=== PATIENT | male | born 1935 | race Caucasian/White ===

== ENCOUNTER 2017-11-11 21:30 | Inpatient (IN) | payer MEDICARE ==
[2017-11-11 22:17] LABS: #Eosinphils 0.1 thou/uL (0.0-0.7); #Lymphocytes 0.9 thou/uL (1.20-3.40); #Monocytes 0.6 thou/uL (0.11-0.59); #Neutrophils 7.3 thou/uL (1.40-6.50); %Basophils 0.2 % (0.0-1.0); %Eosinophils 0.6 % (0.0-10.0); %Lymphocytes 10.1 % (21.0-51.0); %Monocytes 7.1 % (0.0-10.0); %Neutrophils 81.9 % (42.0-75.0); Hemoglobin 12.3 g/dL (14.0-18.0); Mean Corpuscular HGB CONC 34.3 g/dL (32.0-36.0); Mean Corpuscular Volume 90.4 fl (80.0-94.0); Mean Platelet Volume 8.4 fL (7.4-10.4); Platelet Count 159 thou/uL (130-400); RBC Distribution Width 12.3 % (11.5-14.5); Red Blood Cell (RBC) Count 3.98 mill/uL (4.70-6.10)
[2017-11-11 22:36] LABS: ALT (SGPT) 14 U/L (8-55); AST (SGOT) 15 U/L (5-34); Albumin 4.3 g/dL (3.4-4.8); Alkaline Phosphatase 68 U/L (40-150); Anion Gap 16 mmol/L (10-20); BUN (Urea Nitrogen) 51 mg/dL (8.4-25.7); Bilirubin, Total 0.8 mg/dL (0.2-1.2); Calc. Creatinine Clearance 0 mL/min (70-130); Carbon Dioxide 22 mmol/L (23-31); Chloride 102 mmol/L (98-107); Estimated GFR-MDRD 8; Globulin 3.2 g/dL (2.4-3.5); Glucose 211 mg/dL (83-110); Potassium 4.4 mmol/L (3.5-5.1); Protein, Total 7.5 g/dL (5.8-8.1); Sodium 136 mmol/L (136-145)
--- NOTE | 2017-11-11 22:42 | CT ---
CT OF THE BRAIN WITHOUT CONTRAST: 11/11/17 COMPARISON: None. HISTORY: Slurred speech. This started at 1:30 a.m. TECHNIQUE: Multiple contiguous axial images were obtained in a CT of the brain without contrast. FINDINGS: There are scattered hypodensities in the subcortical and periventricular white matter likely secondar y to small vessel ischemic disease. Intracranial vascular calcifications are seen. There is no eviden ce of hydrocephalus, intracranial hemorrhage, or extra-axial fluid collection. The calvarium and overlying soft tissues are unremarkable. The visualized paranasal sinuses and masto id air cells are well aerated. IMPRESSION: 1. No evidence of acute intracranial abnormality. 2. Small vessel ischemic disease. Dr. Merino notified of the findings at 10:25 p.m. on 11/11/17. POS: [facility]
[2017-11-11] MEDS ORDERED: Ondansetron HCl/PF 4 MG/2 ML Vial ONE (22:48)
--- NOTE | 2017-11-11 23:18 | CT ---
CTA OF THE NECK WITH CONTRAST CTA OF THE HEAD WITH CONTRAST CT PERFUSION 11/01/17 TECHNIQUE: 1. Multiple contiguous axial images were obtained in a CTA of the neck with contrast. Sagittal a nd coronal 3D MIP reformats were performed. 2. Multiple contiguous axial images were obtained in a CTA of the head with contrast. Sagittal a nd coronal 3D MIP reformats were performed. 3. Cerebral perfusion exam was performed. FINDINGS: CTA NECK: Mild diffuse atherosclerotic disease is seen in the bilateral subclavian arteries and in the aorta. T here is minimal atherosclerotic disease in the common carotid arteries. Surrounding both carotid bifurcations, There is significant calcified atherosclerotic plaque. Estimat ed stenosis of the proximal right internal carotid is approximately 60 to 70% per NASCET criteria. Th is occurs over a length of approximately 1 cm. Estimated stenosis of the left internal carotid artery per NASCET criteria is approximately 50% and occurs over a length of less than 1 cm. The distal cerv ical and internal carotid arteries show no significant atherosclerotic disease. The external carotid arteries are patent. No cervical adenopathy is seen. The visualized lung apices show a small right pleural effusion and at electasis. Degenerative changes are seen in the cervical spine. CTA HEAD: The bilateral intracranial internal carotid arteries show no significant atherosclerotic disease. The re is moderate diffuse atherosclerotic disease within the cavernous portion of both internal carotid arteries. The intracranial internal carotid arteries branch in a normal appearing anterior and middle cerebral arteries. There is no evidence of aneurysmal dilatation, focal stenosis, or occlusion in th e anterior circulation. Both vertebral arteries form a normal appearing basilar artery. Mild calcifications is seen in the bi lateral intracranial vertebral arteries. The posterior cerebral artery and cerebellar arteries are pa tent. There is no evidence of focal stenosis, occlusion or aneurysmal dilatation in the posterior cir culation. CT PERFUSION: Cerebral blood volume, blood flow and mean transit time are symmetric bilaterally without significant asymmetry. IMPRESSION: 1. Bilateral internal carotid artery stenosis proximally, right greater than left. 2. No evidence of intracranial vascular abnormality or occlusion. 3. Normal CT perfusion. Dr. Merino notified of the findings at 10:48 p.m. on 11/11/17. POS: [facility]
--- NOTE | 2017-11-11 23:27 | RAD ---
SINGLE VIEW OF THE CHEST: 11/11/17 COMPARISON: 07/31/16 HISTORY: Altered mental status. Patient started Valacyclovir yesterday and that is when the altered mental sta tus and confusion began. FINDINGS: Single view of the chest shows a cardiomediastinal silhouette which is upper limits of normal in siz e. The patient is status post sternotomy. Increased interstitial markings are present. There is no ev idence of consolidation, mass or pleural effusion. IMPRESSION: Stable chronic interstitial lung disease. POS: [facility]
[2017-11-12] MEDS ORDERED: methylPREDNISolone Sod Succ/PF 125 MG/2 ML VIAL ONE (00:44)
[2017-11-12] MEDS ORDERED: Water For Inject, Bacteriostat 30 ML ONE (00:44)
[2017-11-12] MEDS ORDERED: Ondansetron HCl/PF 4 MG/2 ML Vial IVP PRN ×2 (01:45→03:10)
[2017-11-12] MEDS ORDERED: Ondansetron ODT 4 MG TAB SL PRN (01:45)
[2017-11-12] MEDS ORDERED: Acetaminophen 325 MG TAB PO PRN ×2 (01:45→03:10)
[2017-11-12 02:09] VITALS: BMI 26.6
[2017-11-12] MEDS ORDERED: Sodium Chloride 0.65% Nasal 44 ML BOT EA NARE PRN (03:10)
[2017-11-12] MEDS ORDERED: Diabetic Tussin 200 MG/10 ML UDCUP PO PRN (03:10)
[2017-11-12] MEDS ORDERED: Dextrose 5% in Water 1,000 ML IV PRN (03:10)
[2017-11-12] MEDS ORDERED: Loratadine 10 MG TAB PO PRN (03:10)
[2017-11-12] MEDS ORDERED: Dextrose 50% Abboject 50 ML SYRINGE SLOW IVP PRN (03:10)
[2017-11-12] MEDS ORDERED: Loperamide HCl 2 MG CAP PO PRN (03:10)
[2017-11-12] MEDS ORDERED: Mag-Al 1200 mg/1200 mg/30 ML UDCUP PO PRN (03:10)
[2017-11-12] MEDS ORDERED: Milk Of Magnesia 30 ML UDCUP PO PRN (03:10)
[2017-11-12] MEDS ORDERED: Ondansetron ODT 4 MG TAB PO PRN (03:10)
[2017-11-12] MEDS ORDERED: Senokot 8.6 MG TAB PO PRN (03:10)
[2017-11-12] MEDS ORDERED: HYDROcodone/Acetaminophen 5/325 mg Tablet PO PRN (03:10)
[2017-11-12] MEDS ORDERED: Artificial Tears 18 DROP/0.9 ML EA EYE PRN (03:10)
[2017-11-12] MEDS ORDERED: Eucerin (Mineral Oil/Petrolatum,White) 30 gm Jar TOP PRN (03:10)
[2017-11-12] MEDS ORDERED: hydrALAZINE 20 MG/ML VIAL SLOW IVP PRN (03:10)
[2017-11-12] MEDS ORDERED: Zolpidem Tartrate 5 MG TAB PO PRN (03:10)
[2017-11-12] MEDS ORDERED: Chloraseptic Spray 180 ml Bottle PO PRN (03:10)
--- NOTE | 2017-11-12 04:56 | HP ---
PRIMARY CARE PHYSICIAN: [facility] call admission. PRIMARY TOWEL ROLLING MACHINE OPERATOR: Dr. Travis Bains. REASON FOR ADMISSION: Altered mental status. HISTORY OF PRESENT ILLNESS: This is an 81-year-old male who has underlying history of end-stage renal disease on hemodialysis Friday, Friday, Friday as well as mechanical prosthetic aortic valve on chronic anticoagulation therapy as well as a history of diabetes mellitus, who was brought to emergency room for altered mental status. Per family member, patient was confused. He was having headache. He was also had recently shingles and he was started on acyclovir. The patient was becoming more and more confused and that is why, patient was instructed to go to the emergency room for evaluation. Initially, stroke alert was done and in the emergency room, CT angiography with brain perfusion study was done, which was negative for any stroke. This patient's shingle is already on healing phase. He did not have any fever or chills, but only was worried about his confusion. In the emergency room, patient was able to answer most of the questions correctly, but somewhat answer he was not able to do right. 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-type. End-stage renal disease on hemodialysis Friday, Friday, Friday, hypertension, dyslipidemia, diabetes type 2. PAST SURGICAL HISTORY: CABG x3 in 2000 and aortic valve replacement with [employer], mechanical prosthesis in 2000, laparoscopic cholecystectomy. PAST PSYCHIATRIC HISTORY: Reviewed and negative. CURRENT HOME MEDICATIONS: Amlodipine 5 mg p.o. b.i.d., Lipitor 20 mg p.o. daily , calcium acetate 667 mg 2 tablets p.o. a.c., glipizide 5 mg p.o. b.i.d., insulin Lantus 10 units subcu daily, warfarin 6 mg p.o. daily, valacyclovir 500 mg p.o. b.i.d. ALLERGIES: No known drug allergy. FAMILY HISTORY: No strong family history of premature coronary artery disease, stroke or cancer. SOCIAL HISTORY: Patient is . 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 REVIEW OF SYSTEMS: The following complete review of systems was negative, unless otherwise mentioned in the HPI or below: Constitutional: Weight loss or gain, ability to conduct usual activities. Skin: Rash, itching. Eyes: Double vision, pain. ENT/Mouth: Nose bleeding, neck stiffness, pain, tenderness. Cardiovascular: Palpitations, dyspnea on exertion, orthopnea. Respiratory: Shortness of breath, wheezing, cough, hemoptysis, fever or night sweats. Gastrointestinal: Poor appetite, abdominal pain, heartburn, nausea, vomiting, constipation, or diarrhea. Genitourinary: Urgency, frequency, dysuria, nocturia. Musculoskeletal: Pain, swelling. Neurologic/Psychiatric: Anxiety, depression. Allergy/Immunologic: Skin rash, bleeding tendency. Please see my HPI for pertinent positive and negative. All other review of systems reviewed and negative except as mentioned in the HPI. PHYSICAL EXAMINATION: VITAL SIGNS: On arrival, blood pressure 181/79, pulse 81, respiratory rate 16, temperature 97.6, saturation 96% on room air, weight 96.6 kilograms. GENERAL: Patient is currently alert, awake, slightly confused, no obvious acute distress. HEENT: Normocephalic, atraumatic. Eyes: Pupils round, reactive to light. Extraocular muscle intact. ENT: Oropharynx within normal limits. Moist mucous membranes. No oral lesion , no pharyngeal erythema, no exudate. NECK: Supple, no JVD, no thyromegaly, no carotid bruit. LUNGS: Clear to auscultation without any rhonchi or rales. CARDIAC: S1, S2 appears regular. No murmur, no gallop, no rub. Mechanical prosthetic sounds heard. ABDOMEN: Soft, bowel sounds present, nontender, nondistended. No organomegaly , no mass, no suprapubic tenderness. BACK: Unremarkable, no CVA tenderness. EXTREMITIES: Upper extremity passive movement of all joints are normal. Lower extremities: No edema. Good peripheral pulsation. SKIN: Patient does have herpes zoster healing rash on the posterior aspect of neck. HEMATOLOGIC: No lymphadenopathy. PSYCHIATRIC: Normal affect. NEUROLOGIC: Patient is alert, awake, slightly confused, no focal neurological deficit. No meningeal signs of irritation. No cerebellar sign. Plantar bilateral flexor. SIGNIFICANT LABS: EKG showing first degree AV block, left ventricular hypertrophy. CT brain based on my review, chronic small vessel ischemic disease , no evidence of acute intracranial process. CT angiography with brain perfusion study showing bilateral internal carotid artery stenosis, right more than left. No evidence of vascular abnormality or occlusion. Normal CT perfusion. Chest x-ray based on my review, chronic interstitial lung disease. CBC: WBC 9.0, hemoglobin 12.3, platelet 159. BMP: Sodium 136, potassium 4.4, chloride 102, carbon dioxide 22, BUN 51, creatinine 6.45, glucose 211, calcium 10.0. LFT: AST 15, ALT 14, alkaline phosphatase 68, albumin 4.3. ASSESSMENT AND PLAN: IMPRESSION: 1. 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 At this point, we tried to do lumbar puncture, but patient is on chronic anticoagulation therapy and that is why we will check PT/INR. We will consult Neurology for their opinion. At this point, we will continue acyclovir as per renally adjusted dose. We will monitor neurologically. This patient does not have any focal neurological deficit based on CT angiography. 2. End-stage renal disease, on hemodialysis Friday, Friday, Friday. Dr. Travis Bains will be consulted for maintenance hemodialysis while in hospital. 3. Hypertension. We will continue amlodipine 5 mg p.o. b.i.d. 4. Dyslipidemia. We will continue Lipitor 20 mg p.o. daily. 5. Secondary hyperparathyroidism of renal origin. We will continue PhosLo 667 mg 2 tablets a.c. 6. Diabetes type 2. We will continue insulin 10 units subcutaneously daily. We will hold on oral hypoglycemic medication. 7. Chronic anticoagulation. We will monitor PT/INR on daily basis. 8. Deep venous thrombosis prophylaxis. Patient is already on warfarin therapy. 9. Gastrointestinal prophylaxis. Pepcid 20 mg p.o. daily. CODE STATUS: The patient is FULL CODE. Patient's is surrogate decision maker. Disposition plan based on clinical course while in hospital. Patient will need PT, OT evaluation. Plan of care discussed with the patient and family member at bedside in the emergency room in detail. MTDD
[2017-11-12 05:00] LABS: INR-International Normal Ratio 2.3; Prothrombin Time 26.1 SEC (12.0-14.7)
[2017-11-12] MEDS: HumaLOG 300 UNITS/3 ML VIAL SC PRN ×2 (05:01→16:56)
[2017-11-12 05:04] LABS: #Lymphocytes 0.5 thou/uL (1.20-3.40); #Monocytes 0.1 thou/uL (0.11-0.59); #Neutrophils 10.8 thou/uL (1.40-6.50); %Basophils 0.2 % (0.0-1.0); %Eosinophils 0.1 % (0.0-10.0); %Lymphocytes 4.5 % (21.0-51.0); %Neutrophils 94.3 % (42.0-75.0); Hemoglobin 12.6 g/dL (14.0-18.0); Mean Corpuscular HGB CONC 33.5 g/dL (32.0-36.0); Mean Corpuscular Hemoglobin 31.3 pg (27.0-31.0); Mean Corpuscular Volume 93.3 fl (80.0-94.0); Mean Platelet Volume 9.1 fL (7.4-10.4); Platelet Count 173 thou/uL (130-400); RBC Distribution Width 12.4 % (11.5-14.5); Red Blood Cell (RBC) Count 4.03 mill/uL (4.70-6.10); White Blood Cell (WBC) Count 11.4 thou/uL (4.8-10.8)
[2017-11-12 05:10] LABS: ALT (SGPT) 13 U/L (8-55); AST (SGOT) 15 U/L (5-34); Albumin 4.2 g/dL (3.4-4.8); Alkaline Phosphatase 68 U/L (40-150); Anion Gap 18 mmol/L (10-20); BUN (Urea Nitrogen) 56 mg/dL (8.4-25.7); Bilirubin, Total 0.7 mg/dL (0.2-1.2); Calc. Creatinine Clearance 12 mL/min (70-130); Calcium 9.7 mg/dL (7.8-10.44); Carbon Dioxide 20 mmol/L (23-31); Chloride 100 mmol/L (98-107); Estimated GFR-MDRD 8; Glucose 354 mg/dL (83-110); Potassium 4.6 mmol/L (3.5-5.1); Protein, Total 7.2 g/dL (5.8-8.1); Sodium 133 mmol/L (136-145)
[2017-11-12] MEDS: Calcium Acetate 667 MG CAP PO SCH ×3 (07:40→16:59)
[2017-11-12] MEDS: Amlodipine 5 MG TAB PO SCH ×3 (09:00→21:39)
[2017-11-12] MEDS: Atorvastatin Calcium 20 MG TAB PO SCH ×2 (09:35→14:00)
[2017-11-12] MEDS: Famotidine 20 MG TAB PO SCH ×2 (09:36→13:59)
[2017-11-12] MEDS: Acyclovir Sodium 850 MG in Sodium Chloride 0.9% 250 ML 250 ML IVPB SCH (14:02)
--- NOTE | 2017-11-12 14:55 | PDOC.EVN ---
Event Note - Event Note Event Note: pt seen after HD.chart reviewed. cont Acyclovir. LP not performed.will defer to ID for same.? 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 follow Cx results. AM labs INR therapeutic.Hold coumadin if LP needed. pharmacy to dose and monitor.
--- NOTE | 2017-11-12 16:29 | MRI ---
MRI BRAIN NONCONTRAST: DATE: 11/12/17 HISTORY: 81-year-old male with altered mental status and dysarthria, with herpes infection. COMPARISON: none FINDINGS: There are mild to moderate chronic ischemic white matter changes in the periventricular white matter, and in the jaimes radiata, and centrum semiovale. There are several tiny old lacunar infarctions in the bilateral cerebellar hemispheres. There are linear small old infarctions in the right cerebellar hemisphere. There is diffuse parenchymal volume loss, typical for this age group. No evidence of obst ructive hydrocephalus, mass effect, midline shift, or extra-axial fluid collection. No evidence of ed evaristo in the temporal lobes. No evidence of recent or remote major intra-axial hemorrhage. No restricte d diffusion to indicate any acute infarction. IMPRESSION: 1. No evidence of herpes encephalopathy. 2. 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 3. Involutional changes and mild to moderate chronic ischemic white matter changes, typical for this age group. JEN Peters POS: [facility]
[2017-11-12] MEDS: Warfarin Sodium 3 MG TAB PO SCH (16:59)
[2017-11-12] MEDS: Insulin Detemir 100 UNITS/ML 10 UNITS in Admixture Fee 1 EACH SC SCH (21:40)
[2017-11-13 04:48] LABS: #Neutrophils 8.5 thou/uL (1.40-6.50); %Basophils 0.4 % (0.0-1.0); %Eosinophils 0.3 % (0.0-10.0); %Lymphocytes 9.8 % (21.0-51.0); %Monocytes 9.2 % (0.0-10.0); %Neutrophils 80.3 % (42.0-75.0); Hemoglobin 11.7 g/dL (14.0-18.0); Mean Corpuscular HGB CONC 34.1 g/dL (32.0-36.0); Mean Corpuscular Hemoglobin 31.5 pg (27.0-31.0); Mean Corpuscular Volume 92.3 fl (80.0-94.0); Mean Platelet Volume 8.9 fL (7.4-10.4); Platelet Count 168 thou/uL (130-400); RBC Distribution Width 12.1 % (11.5-14.5); Red Blood Cell (RBC) Count 3.71 mill/uL (4.70-6.10); White Blood Cell (WBC) Count 10.6 thou/uL (4.8-10.8)
[2017-11-13 04:58] LABS: Anion Gap 15 mmol/L (10-20); BUN (Urea Nitrogen) 41 mg/dL (8.4-25.7); Calc. Creatinine Clearance 15 mL/min (70-130); Calcium 9.4 mg/dL (7.8-10.44); Carbon Dioxide 25 mmol/L (23-31); Chloride 98 mmol/L (98-107); Estimated GFR-MDRD 11; Glucose 151 mg/dL (83-110); Potassium 4.2 mmol/L (3.5-5.1); Sodium 134 mmol/L (136-145)
[2017-11-13 05:02] LABS: INR-International Normal Ratio 2.5; Prothrombin Time 27.5 SEC (12.0-14.7)
[2017-11-13] MEDS: Calcium Acetate 667 MG CAP PO SCH ×3 (09:04→17:12)
[2017-11-13] MEDS: Atorvastatin Calcium 20 MG TAB PO SCH (09:05)
[2017-11-13] MEDS: Amlodipine 5 MG TAB PO SCH ×2 (09:05→20:58)
[2017-11-13] MEDS: Famotidine 20 MG TAB PO SCH (09:07)
--- NOTE | 2017-11-13 10:38 | PDOC.PN ---
- Subjective Encounter Start Date: 11/13/17 Encounter Start Time: 08:30 -: old records requested/rev Patient seen and examined. No new complaints. No overnight events - Objective Resuscitation Status: Resuscitation Status FULL:Full Resuscitation MAR Reviewed: Yes Vital Signs & Weight: Vital Signs (12 hours) Temp Pulse Resp BP BP Pulse Ox 11/13/17 09:05 78 172/77 H 11/13/17 08:00 97.7 F 78 18 172/77 H 94 L 11/13/17 04:00 97.6 F 73 18 137/59 L 92 L 11/13/17 00:43 92 L Weight Weight 213 lb 0.17 oz I&O: 11/12/17 11/13/17 11/14/17 06:59 06:59 06:59 Intake Total 240 1300 Output Total 300 3500 Balance -60 -2200 Result Diagrams: 11/13/17 03:51 11/13/17 03:51 Additional Labs: Accuchecks 11/13/17 11/12/17 11/12/17 05:20 20:40 16:55 POC Glucose 174 H 227 H 240 H 11/12/17 13:41 POC Glucose 203 H Radiology Reviewed by me: Yes (MRI is normal, old infarct) Phys Exam - Physical Examination Constitutional: NAD HEENT: PERRLA, moist MMs, sclera anicteric Neck: no JVD, supple Respiratory: no wheezing, no rales, no rhonchi Cardiovascular: RRR, no significant murmur, no rub Gastrointestinal: soft, non-tender, no distention, positive bowel sounds Musculoskeletal: no edema, pulses present Neurological: non-focal, normal sensation Lymphatic: no nodes Psychiatric: normal affect Skin: no rash, normal turgor Dx/Plan (1) Acute encephalopathy Code(s): G93.40 - ENCEPHALOPATHY, UNSPECIFIED Status: Acute (2) Herpes zoster Code(s): B02.9 - ZOSTER WITHOUT COMPLICATIONS Status: Acute (3) Chronic anticoagulation Code(s): Z79.01 - SHELTER (CURRENT) USE OF 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 Status: Chronic (4) Diabetes type 2, controlled Code(s): E11.9 - TYPE 2 DIABETES MELLITUS WITHOUT COMPLICATIONS Status: Chronic (5) Dyslipidemia Code(s): E78.5 - HYPERLIPIDEMIA, UNSPECIFIED Status: Chronic (6) ESRD (end stage renal disease) on dialysis Code(s): N18.6 - END STAGE RENAL DISEASE; Z99.2 - DEPENDENCE ON RENAL DIALYSIS Status: Chronic (7) H/O prosthetic aortic valve replacement Code(s): Z95.2 - PRESENCE OF PROSTHETIC HEART VALVE Status: Chronic (8) Hypertension Code(s): I10 - ESSENTIAL (PRIMARY) HYPERTENSION Status: Chronic (9) Secondary hyperparathyroidism of renal origin Code(s): N25.81 - SECONDARY HYPERPARATHYROIDISM OF RENAL ORIGIN Status: Chronic - Plan cont current plan of care, PT/OT * continue acyclovir for herpes * doubt pt has any herpes encephalitis * pt is improving * HD as per nephrology * medication reviewed as below * symptomatic treatment. * neurology will see * continue PT Review of Systems - Review of Systems ENT: negative: Ear Pain, Ear Discharge, Nose Pain, Nose Discharge, Nose Congestion, Mouth Pain, Mouth Swelling, Throat Pain, Throat Swelling, Other Respiratory: negative: Cough, Dry, Shortness of Breath, Hemoptysis, SOB with Excertion, Pleuritic Pain, Sputum, Wheezing Cardiovascular: negative: chest pain, palpitations, orthopnea, paroxysmal nocturnal dyspnea, edema, light headedness, other Gastrointestinal: negative: Nausea, Vomiting, Abdominal Pain, Diarrhea, Constipation, Melena, Hematochezia, Other Genitourinary: negative: Dysuria, Frequency, Incontinence, Hematuria, Retention , Other Musculoskeletal: negative: Neck Pain, Shoulder Pain, Arm Pain, Back Pain, Hand Pain, Leg Pain, Foot Pain, Other Skin: negative: Rash, Lesions, Darin, Bruising, Other - Medications/Allergies Allergies/Adverse Reactions: Allergies Allergy/AdvReac Type Severity Reaction Status Date / Time No Known Allergies Allergy Verified 12/23/16 09:22 Medications: Current Medications Acetaminophen (Tylenol) 650 mg PO Q4H PRN PRN Reason: Headache/Fever or Pain Hydrocodone Bitart/Acetaminophen ([place] 5/325) 1 tab PO Q4H PRN PRN Reason: Moderate Pain (4-6) Al Hydroxide/Mg Hydroxide (Maalox) 30 ml PO Q6H PRN PRN Reason: Heartburn or Indigestion Amlodipine Besylate (Norvasc) 5 mg PO BID JUAN FRANCISCO Last Admin: 11/13/17 09:05 Dose: 5 mg Artificial Tears (Tears Naturale) 0 drop EA EYE PRN PRN PRN Reason: Dry Eyes Atorvastatin Calcium (Lipitor) 20 mg PO QAM [facility] Last Admin: 11/13/17 09:05 Dose: 20 mg Calcium Acetate (Phoslo) 1,334 mg PO [facility] Last Admin: 11/13/17 09:04 Dose: 1,334 mg Dextrose/Water (Dextrose 50%) 25 gm SLOW IVP PRN PRN PRN Reason: Hypoglycemia Famotidine (Pepcid) 20 mg PO DAILY [facility] Last Admin: 11/13/17 09:07 Dose: 20 mg Glucagon (Glucagon) 1 mg IM PRN PRN PRN Reason: Hypoglycemia Guaifenesin (Robitussin Sf) 200 mg PO Q4H PRN PRN Reason: Cough Hydralazine HCl (Apresoline) 10 mg SLOW IVP Q4H PRN PRN Reason: Systolic BP > 180 Dextrose/Water (D5w) 1,000 mls @ 0 mls/hr IV .Q0M PRN; As Directed PRN Reason: Hypoglycemia Insulin Detemir 10 units/ (Miscellaneous Medication) 0.1 mls @ 0 mls/hr [facility] Last Admin: 11/12/17 21:40 Dose: 0.1 mls Acyclovir Sodium 850 mg/ (Sodium Chloride) 267 mls @ 267 mls/hr IVPB Q24HR@ 1200 [facility] Last Admin: 11/12/17 14:02 Dose: 267 mls Insulin Human Lispro (Humalog) 0 units SC .MODERATE SLIDING SC PRN PRN Reason: Moderate Correctional Scale Last Admin: 11/12/17 16:56 Dose: 4 unit Insulin Human Lispro (Humalog) 0 units SC .BEDTIME SLIDING SC PRN PRN Reason: Bedtime Correctional Scale Last Admin: 11/12/17 05:01 Dose: 5 unit Loperamide HCl (Imodium) 2 mg PO PRN PRN PRN Reason: Diarrhea/Loose Stools Loratadine (Claritin) 10 mg PO DAILYPRN PRN PRN Reason: Sinus Symptoms Magnesium Hydroxide (Milk Of Magnesium) 30 ml PO DAILYPRN PRN PRN Reason: Constipation Mineral Oil/White Petrolatum (Eucerin Cream) 0 gm TOP BIDPRN PRN PRN Reason: Dry Skin Miscellaneous Medication (Pharmacy To Dose) 0 each IVPB PRN PRN PRN Reason: ACYCLOVIR Pharmacy to Dose Miscellaneous Medication (Pharmacy To Dose) 1 each PO PRN PRN PRN Reason: Pharmacy to dose Ondansetron HCl (Zofran Odt) 4 mg PO Q6H PRN PRN Reason: Nausea/Vomiting Ondansetron HCl (Zofran) 4 mg IVP Q6H PRN PRN Reason: Nausea/Vomiting Phenol (Chloraseptic Jeff 180 Ml Bot) 0 ml PO PRN PRN PRN Reason: Sore Throat Senna (Senokot) 2 tab PO HSPRN PRN PRN Reason: Constipation Sodium Chloride (Flush - Normal Saline) 10 ml IVF Q12HR [facility] Last Admin: 11/13/17 09:07 Dose: 10 ml Sodium Chloride (Flush - Normal Saline) 10 ml IVF PRN PRN PRN Reason: Saline Flush Sodium Chloride ([place] Nasal Jeff 0.65%) 0 ml EA NARE QIDPRN PRN PRN Reason: Nasal Congestion Warfarin Sodium (Coumadin) 6 mg PO DAILY@1700 [facility] Last Admin: 11/12/17 16:59 Dose: 6 mg Zolpidem Tartrate (Ambien) 5 mg PO HSPRN PRN PRN Reason: Insomnia
[2017-11-13] MEDS: Acyclovir Sodium 850 MG in Sodium Chloride 0.9% 250 ML 250 ML IVPB SCH (12:16)
[2017-11-13] MEDS: HumaLOG 300 UNITS/3 ML VIAL SC PRN ×2 (12:18→21:00)
[2017-11-13] MEDS: Warfarin Sodium 3 MG TAB PO SCH (17:13)
[2017-11-13] MEDS: Insulin Detemir 100 UNITS/ML 10 UNITS in Admixture Fee 1 EACH SC SCH (20:59)
--- NOTE | 2017-11-14 00:05 | CON ---
DATE OF CONSULTATION: 11/13/2017 CONSULTING PHYSICIAN: Hospitalist Service. IMPRESSION: 1. 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 2. Recent shingles on the scalp. 3. End-stage renal disease. 4. Diabetes. PLAN: 1. I would discontinue his acyclovir. 2. Continue dialysis. HISTORY OF PRESENT ILLNESS: Mr. Friend is an 81-year-old man with a history of diabetes and end-stage renal disease, recently had an outbreak of shingles on the back side of his head. He was prescribed valacyclovir. After taking 3 doses of the medication, he started acting strangely. Speech became a bit slurred and he seemed confused. He came into the hospital for evaluation. He has been afebrile since admission without any complaints of any head pain at this point. He does note that he continue s to have difficulty processing information and feels he is having a little difficulty speaking. He had an MRI of the brain done earlier, which was unremarkable other than some chronic small vessel isc hemic changes. He has not had any nausea or vomiting. PAST MEDICAL HISTORY: As listed above. ALLERGIES: None reported. SOCIAL HISTORY: No tobacco or alcohol use. He is . Lives at home independently. He is on d ialysis 3 days a week. REVIEW OF SYSTEMS: Otherwise negative. FAMILY HISTORY: Noncontributory. MEDICATION LIST: Reviewed. PHYSICAL EXAMINATION: GENERAL: He is a healthy-appearing elderly man sitting up in bed in no distress. VITAL SIGNS: Stable. He is afebrile. HEENT: There are few skin lesions noted in the right occipital area. NECK: Supple. EXTREMITIES: No cyanosis, clubbing, or edema. NEUROLOGIC: He was alert and cooperative. His speech was mildly slurred. He did seem to have a bit of difficulty comprehending, but this seemed to be overcome by repetition. Cranial nerves II-XII ar e intact. Motor exam showed good strength bilaterally. There was very mild asterixis present. Sens ation was symmetric to light touch. Gait was not tested. LABORATORY STUDIES: Reviewed and showed evidence of his renal failure. SUMMARY: Elderly man who developed some nonfocal mild confusion and dysarthria since starting on ant iviral medications. These are common side effects to this medication, especially with his renal fail ure and age. I would discontinue the antiviral drugs at this point given that he is fairly asymptoma tic from a standpoint of the shingles. I will be happy to follow up with him as an outpatient.
[2017-11-14 04:39] LABS: INR-International Normal Ratio 2.8; Prothrombin Time 30.7 SEC (12.0-14.7)
[2017-11-14] MEDS: Calcium Acetate 667 MG CAP PO SCH ×3 (08:29→18:07)
[2017-11-14] MEDS: Amlodipine 5 MG TAB PO SCH ×2 (08:30→20:11)
[2017-11-14] MEDS: Famotidine 20 MG TAB PO SCH (08:30)
[2017-11-14] MEDS: Atorvastatin Calcium 20 MG TAB PO SCH (08:30)
[2017-11-14] MEDS ORDERED: Heparin 1,000 UNITS/ML VIAL ONE (11:11)
--- NOTE | 2017-11-14 12:27 | PDOC.PN ---
- Subjective Encounter Start Date: 11/14/17 Encounter Start Time: 08:15 Patient seen and examined. No new complaints. No overnight events - Objective Resuscitation Status: Resuscitation Status FULL:Full Resuscitation MAR Reviewed: Yes Vital Signs & Weight: Vital Signs (12 hours) Temp Pulse Resp BP Pulse Ox 11/14/17 11:00 97.9 F 78 16 150/82 H 91 L 11/14/17 08:30 78 11/14/17 08:00 97.8 F 78 18 90 L 11/14/17 07:35 97.8 F 78 18 145/67 H 90 L 11/14/17 04:00 98.4 F 70 18 138/67 95 Weight Weight 213 lb 0.17 oz I&O: 11/13/17 11/14/17 11/15/17 06:59 06:59 06:59 Intake Total 1300 1600 Output Total 3500 0 Balance -2200 1600 Result Diagrams: 11/13/17 03:51 11/13/17 03:51 Additional Labs: Accuchecks 11/14/17 11/14/17 11/13/17 11:18 05:09 20:10 POC Glucose 155 H 104 241 H 11/13/17 16:20 POC Glucose 159 H Phys Exam - Physical Examination Constitutional: NAD HEENT: PERRLA, moist MMs, sclera anicteric Neck: no JVD, supple Respiratory: no wheezing, no rales, no rhonchi Cardiovascular: RRR, no significant murmur, no rub Gastrointestinal: soft, non-tender, no distention, positive bowel sounds Musculoskeletal: no edema, pulses present Neurological: non-focal, normal sensation, moves all 4 limbs Lymphatic: no nodes Psychiatric: normal affect Skin: no rash, normal turgor Dx/Plan (1) Acute encephalopathy Code(s): G93.40 - ENCEPHALOPATHY, UNSPECIFIED Status: Acute Comment: improving, suspected from drug induced (2) Herpes zoster Code(s): B02.9 - ZOSTER WITHOUT COMPLICATIONS Status: Acute (3) Chronic anticoagulation Code(s): Z79.01 - DETENTION (CURRENT) USE OF 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 Status: Chronic (4) Diabetes type 2, controlled Code(s): E11.9 - TYPE 2 DIABETES MELLITUS WITHOUT COMPLICATIONS Status: Chronic (5) Dyslipidemia Code(s): E78.5 - HYPERLIPIDEMIA, UNSPECIFIED Status: Chronic (6) ESRD (end stage renal disease) on dialysis Code(s): N18.6 - END STAGE RENAL DISEASE; Z99.2 - DEPENDENCE ON RENAL DIALYSIS Status: Chronic (7) H/O prosthetic aortic valve replacement Code(s): Z95.2 - PRESENCE OF PROSTHETIC HEART VALVE Status: Chronic (8) Hypertension Code(s): I10 - ESSENTIAL (PRIMARY) HYPERTENSION Status: Chronic (9) Secondary hyperparathyroidism of renal origin Code(s): N25.81 - SECONDARY HYPERPARATHYROIDISM OF RENAL ORIGIN Status: Chronic - Plan cont current plan of care * as per neurology, acyclovir related encephalopathy. * ID consulted and await input * medication reviewed as below * symptomatic treatment * HD as per nephrology Review of Systems - Review of Systems Constitutional: negative: fever, chills, sweats, weakness, malaise, other ENT: negative: Ear Pain, Ear Discharge, Nose Pain, Nose Discharge, Nose Congestion, Mouth Pain, Mouth Swelling, Throat Pain, Throat Swelling, Other Respiratory: negative: Cough, Dry, Shortness of Breath, Hemoptysis, SOB with Excertion, Pleuritic Pain, Sputum, Wheezing Cardiovascular: negative: chest pain, palpitations, orthopnea, paroxysmal nocturnal dyspnea, edema, light headedness, other Gastrointestinal: negative: Nausea, Vomiting, Abdominal Pain, Diarrhea, Constipation, Melena, Hematochezia, Other Genitourinary: negative: Dysuria, Frequency, Incontinence, Hematuria, Retention , Other Skin: negative: Rash, Lesions, Darin, Bruising, Other Neurological: Weakness, Numbness, Incoordination, Change in Speech, Confusion, Seizures, Other - Medications/Allergies Allergies/Adverse Reactions: Allergies Allergy/AdvReac Type Severity Reaction Status Date / Time No Known Allergies Allergy Verified 12/23/16 09:22 Medications: Current Medications Acetaminophen (Tylenol) 650 mg PO Q4H PRN PRN Reason: Headache/Fever or Pain Hydrocodone Bitart/Acetaminophen ([place] 5/325) 1 tab PO Q4H PRN PRN Reason: Moderate Pain (4-6) Al Hydroxide/Mg Hydroxide (Maalox) 30 ml PO Q6H PRN PRN Reason: Heartburn or Indigestion Amlodipine Besylate (Norvasc) 5 mg PO BID [facility] Last Admin: 11/14/17 08:30 Dose: 5 mg Artificial Tears (Tears Naturale) 0 drop EA EYE PRN PRN PRN Reason: Dry Eyes Atorvastatin Calcium (Lipitor) 20 mg PO QAM [facility] Last Admin: 11/14/17 08:30 Dose: 20 mg Calcium Acetate (Phoslo) 1,334 mg PO AC [facility] Last Admin: 11/14/17 08:29 Dose: 1,334 mg Dextrose/Water (Dextrose 50%) 25 gm SLOW IVP PRN PRN PRN Reason: Hypoglycemia Famotidine (Pepcid) 20 mg PO DAILY [facility] Last Admin: 11/14/17 08:30 Dose: 20 mg Glucagon (Glucagon) 1 mg IM PRN PRN PRN Reason: Hypoglycemia Guaifenesin (Robitussin Sf) 200 mg PO Q4H PRN PRN Reason: Cough Hydralazine HCl (Apresoline) 10 mg SLOW IVP Q4H PRN PRN Reason: Systolic BP > 180 Dextrose/Water (D5w) 1,000 mls @ 0 mls/hr IV .Q0M PRN; As Directed PRN Reason: Hypoglycemia Insulin Detemir 10 units/ (Miscellaneous Medication) 0.1 mls @ 0 mls/hr SC [facility] Last Admin: 11/13/17 20:59 Dose: 0.1 mls Insulin Human Lispro (Humalog) 0 units SC .MODERATE SLIDING SC PRN PRN Reason: Moderate Correctional Scale Last Admin: 11/13/17 12:18 Dose: 6 unit Insulin Human Lispro (Humalog) 0 units SC .BEDTIME SLIDING SC PRN PRN Reason: Bedtime Correctional Scale Last Admin: 11/13/17 21:00 Dose: 2 unit Loperamide HCl (Imodium) 2 mg PO PRN PRN PRN Reason: Diarrhea/Loose Stools Loratadine (Claritin) 10 mg PO DAILYPRN PRN PRN Reason: Sinus Symptoms Magnesium Hydroxide (Milk Of Magnesium) 30 ml PO DAILYPRN PRN PRN Reason: Constipation Mineral Oil/White Petrolatum (Eucerin Cream) 0 gm TOP BIDPRN PRN PRN Reason: Dry Skin Miscellaneous Medication (Pharmacy To Dose) 0 each IVPB PRN PRN PRN Reason: ACYCLOVIR Pharmacy to Dose Miscellaneous Medication (Pharmacy To Dose) 1 each PO PRN PRN PRN Reason: Pharmacy to dose Ondansetron HCl (Zofran Odt) 4 mg PO Q6H PRN PRN Reason: Nausea/Vomiting Ondansetron HCl (Zofran) 4 mg IVP Q6H PRN PRN Reason: Nausea/Vomiting Phenol (Chloraseptic Krypton 180 Ml Bot) 0 ml PO PRN PRN PRN Reason: Sore Throat Senna (Senokot) 2 tab PO HSPRN PRN PRN Reason: Constipation Sodium Chloride (Flush - Normal Saline) 10 ml IVF Q12HR [facility] Last Admin: 11/14/17 08:35 Dose: 10 ml Sodium Chloride (Flush - Normal Saline) 10 ml IVF PRN PRN PRN Reason: Saline Flush Sodium Chloride (Yellow Medicine Nasal Krypton 0.65%) 0 ml EA NARE QIDPRN PRN PRN Reason: Nasal Congestion Warfarin Sodium (Coumadin) 6 mg PO DAILY@1700 [facility] Last Admin: 11/13/17 17:13 Dose: 6 mg Zolpidem Tartrate (Ambien) 5 mg PO HSPRN PRN PRN Reason: Insomnia
--- NOTE | 2017-11-14 13:10 | CON ---
DATE OF CONSULTATION: 11/14/2017 REASON FOR CONSULTATION: Altered mental status. 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 The patient is dialyzed through an AV fistula in the right upper extremity a nd he was in his usual state of health until the weekend before admission when he developed quite int ense headaches. Subsequently, he developed a skin eruption in the left occipital region, went to see his primary physician and was diagnosed with shingles and given antiviral medication. It is not tami ar if it is a Valtrex or acyclovir. The dose was apparently the dose for normal renal function patie nt's 3 times a day, but I will have to verify that with the son. The next day, he was found to have developed altered mental status with a confusional state and speech impairment and the same day he wa s brought to the emergency room. Extensive evaluation was done for CVA, which was negative and he lundberg d an MRI which showed a small vessel disease, but no other findings. The patient was continued on an tiviral treatments and he developed recrudescence of the altered mental status. Neurology was consul anuradha and recommended discontinuation of the antiviral agent acyclovir because of possibility of acyclo vir induced changes. Currently, Mr. Friend is more alert. He is oriented. He was oriented x3, but lundberg s somewhat slurred speech and has difficulty in finding words. His recollection is pretty good. He currently denies any headaches, no visual symptoms, sore throat, aphasia, dysphagia, no cough, sputum production or chest pain, no abdominal pain, diarrhea, no genitourinary symptoms. He does not have urinary output. No joint symptoms. PAST MEDICAL HISTORY: Coronary artery disease, bypass graft surgery, endocarditis with aortic valve replacement on chronic Coumadin. It is a mechanical type of valve [facility] [place], end-stage renal disease, probably due to nephrosclerosis on hemodialysis through an AV fistula, hypertension, dyslipidemia, t ype 2 diabetes and a recent episode of herpes zoster in the left occipital nerve distribution. PAST SURGICAL HISTORY: As above. MEDICATIONS: He had been on Norvasc, Lipitor, calcium acetate, warfarin and had been taking valacycl ovir reportedly 500 mg twice daily, although the first day that the son told me he took 3 tablets. ALLERGIES: None. FAMILY HISTORY: Noncontributory. SOCIAL HISTORY: He is retired and , former smoker. PHYSICAL EXAMINATION: VITAL SIGNS: Essentially normal vital signs. His O2 sats were decreased at 90-91%. Slight elevatio n of systolic blood pressure. SKIN: Shows the AV fistula with normal appearance. No Hilliard catheter. No areas of skin breakdown, no lymphadenopathy. HEENT: Ocular movements conjugate. Slight conjunctival hyperemia on the right side. Pupils are abo ut 2 mm and reactive. Oral cavity with quite a few teeth in place with expected decay and gum diseas e. NECK: Supple, no jugular vein distention. LUNGS: Symmetric clear breath sounds. HEART: S1, S2, regular rate. No S3, S4. ABDOMEN: Soft, not distended or tender. No ascites. No bladder distention. EXTREMITIES: No joint inflammatory activity. No edema. Pulses 1+ in dorsalis pedis. NEUROLOGIC: Plantar responses are flexure. No clonus. He is awake, oriented x3, follows commands, pleasant. Recollection is a little bit slow. He has difficulty in finding words and has a bit of sl urred speech. LABORATORY: White cell count 9.0 and now 10.6, hemoglobin 12 and 11, platelets 168, 80% neutrophils. INR 2.8. Sodium 134, creatinine 5.16. Liver profile normal. Albumin 4.3. 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 A chest x-ray with stable interstitial lung disease . ASSESSMENT: 1. End-stage renal disease secondary to nephrosclerosis on hemodialysis through an AV fistula. 2. Coronary artery disease. 3. Prior history of endocarditis with aortic valve replacement which is a mechanical valve, on Couma din. 4. Recent episode of herpes zoster in the distribution of the left occipital nerve. 5. Mental status changes which have temporal association on the intake of Valtrex. DISCUSSION: It seems like the initial Valtrex dose was higher than what would be recommended for salma ebody with end-stage renal disease. I will have to confirm that with the son, but that could explain the altered mental status. There is many reports of encephalopathy following administration of vala cyclovir or acyclovir in patients with end-stage renal disease without the proper dose correction for the level of renal function. The patient is now going on 6 days following the onset of his illness. Typically herpes zoster encephalitis has a much more severe clinical course if not treated glennyi keyona and I believe that is less likely. I would think that drug-induced encephalopathy is the more l ikely scenario. I would advise continuing to withhold the antiviral compound and to monitor his clin ical course. A spinal tap would be complicated by the fact that he is on Coumadin, so I would not re commend doing that at this point and just trying to manage it conservatively, assuming that he is goi ng to progress well off the antiviral compounds, but this will have to be verified.
[2017-11-14] MEDS: Warfarin Sodium 3 MG TAB PO SCH (18:07)
[2017-11-14 19:11] LABS: HSV 2 - DNA Negative (Negative)
[2017-11-14] MEDS: Insulin Detemir 100 UNITS/ML 10 UNITS in Admixture Fee 1 EACH SC SCH (20:11)
[2017-11-15 04:51] LABS: INR-International Normal Ratio 2.5; Prothrombin Time 27.7 SEC (12.0-14.7)
[2017-11-15] MEDS: Calcium Acetate 667 MG CAP PO SCH ×3 (08:05→17:10)
[2017-11-15] MEDS: Amlodipine 5 MG TAB PO SCH (08:05)
[2017-11-15] MEDS: Famotidine 20 MG TAB PO SCH (08:05)
[2017-11-15] MEDS: Atorvastatin Calcium 20 MG TAB PO SCH (08:06)
[2017-11-15 17:06] VITALS: BP 160/78; TEMP 98.2
[2017-11-15] MEDS: Warfarin Sodium 3 MG TAB PO SCH (17:11)
--- NOTE | 2017-11-19 15:08 | EKG ---
Test Reason : Blood Pressure : / mmHG Vent. Rate : 079 BPM Atrial Rate : 079 BPM P-R Int : 272 ms QRS Dur : 136 ms QT Int : 424 ms P-R-T Axes : 096 -53 068 degrees QTc Int : 486 ms Sinus rhythm with 1st degree A-V block Left axis deviation Left ventricular hypertrophy with QRS widening Abnormal ECG Confirmed by SUPRIYA SHELTON D.O. ([id number]), market editor MILTON CELAYA ([id number]) on 11/19/2017 3:07:56 PM Referred By: Confirmed By:SUPRIYA SHELTON D.O.
== END 2017-11-15 17:39 | disposition home health service (06) | DRG 595 ==
LOC: ERS 21:30 → T4-A 23:45
PROVIDERS: ADMIT Internal Medicine; ATTEND Internal Medicine
PROC: 5A1D70Z Performance of Urinary Filtration, Intermittent, Less than 6 Hours Per Day (ICD-10-PCS; principal; 2017-11-12)
PROC: 5A1D70Z Performance of Urinary Filtration, Intermittent, Less than 6 Hours Per Day (ICD-10-PCS; 2017-11-14)
DX: B02.9 Zoster without complications (principal); N18.6 End stage renal disease; G92 Toxic encephalopathy; E11.22 Type 2 diabetes mellitus with diabetic chronic kidney disease; I12.0 Hypertensive chronic kidney disease with stage 5 chronic kidney disease or end stage renal disease; N25.81 Secondary hyperparathyroidism of renal origin; Z95.2 Presence of prosthetic heart valve; Z79.01 Long term (current) use of anticoagulants; Z99.2 Dependence on renal dialysis; I25.10 Atherosclerotic heart disease of native coronary artery without angina pectoris; Z95.1 Presence of aortocoronary bypass graft; E78.5 Hyperlipidemia, unspecified; Z79.4 Long term (current) use of insulin; I44.0 Atrioventricular block, first degree; I65.23 Occlusion and stenosis of bilateral carotid arteries; T37.5X5A Adverse effect of antiviral drugs, initial encounter; D63.1 Anemia in chronic kidney disease; M10.9 Gout, unspecified; Z87.891 Personal history of nicotine dependence
CPT/HCPCS: 0042T; 36415; 36416; 70450; 70496; 70498; 70551; 71045; 80048; 80053; 85025; 85610; 87529; 90935; 93005; 96365; 96375; A4216; G0257; G8978-GP-CM; G8979-GP-CK; G8987-GO-CJ; G8988-GO-CI; J0133; J1644; J1815; J2405; J2930; J7050

== ENCOUNTER 2018-05-12 11:02 | Outpatient (CLI) | payer MEDICARE ==
[2018-05-12 12:31] LABS: #Eosinphils 0.2 thou/uL (0.0-0.7); #Lymphocytes 1.4 thou/uL (1.20-3.40); #Monocytes 1.2 thou/uL (0.11-0.59); #Neutrophils 6.1 thou/uL (1.40-6.50); %Basophils 0.4 % (0.0-1.0); %Eosinophils 2.7 % (0.0-10.0); %Lymphocytes 15.4 % (21.0-51.0); %Neutrophils 68.5 % (42.0-75.0); Mean Corpuscular HGB CONC 33.6 g/dL (32.0-36.0); Mean Corpuscular Hemoglobin 31.2 pg (27.0-31.0); Mean Corpuscular Volume 92.9 fL (78.0-98.0); Mean Platelet Volume 10.3 fL (7.4-10.4); Platelet Count 169 thou/uL (130-400); RBC Distribution Width 12.4 % (11.5-14.5); Red Blood Cell (RBC) Count 3.84 mill/uL (4.70-6.10); White Blood Cell (WBC) Count 8.9 thou/uL (4.8-10.8)
[2018-05-12 12:51] LABS: INR-International Normal Ratio 2.8; Prothrombin Time 29.2 SEC (12.0-14.7)
[2018-05-12 12:54] LABS: Anion Gap 15 mmol/L (10-20); BUN (Urea Nitrogen) 41 mg/dL (8.4-25.7); Calc. Creatinine Clearance 0 mL/min (70-130); Calcium 9.6 mg/dL (7.8-10.44); Carbon Dioxide 26 mmol/L (23-31); Chloride 103 mmol/L (98-107); Estimated GFR-MDRD 9; Glucose 72 mg/dL (83-110); Potassium 4.9 mmol/L (3.5-5.1); Sodium 139 mmol/L (136-145)
== END 2018-05-12 11:03 | disposition home or self-care (01) ==
LOC: LABBT 11:02
PROVIDERS: ATTEND Specialist
DX: Z01.812 Encounter for preprocedural laboratory examination (principal); K40.90 Unilateral inguinal hernia, without obstruction or gangrene, not specified as recurrent
CPT/HCPCS: 80048; 85025; 85610

== ENCOUNTER 2018-06-02 09:25 | Day surgery (SDC) | payer MEDICARE ==
[2018-05-12 11:23] VITALS: BMI 26.2
--- NOTE | 2018-05-12 11:30 | HP ---
HISTORY OF PRESENT ILLNESS: Vadim Friend is an 81-year-old male patient living in [place], the [facility] Dr. Travis Bains for end-stage renal disease, dialyzing at [facility] Friday, Friday, a friday at 0700. He is on Coumadin for a prosthetic valve. He presents with a left inguinal herni a. It is enlarging and bothersome to him. He desires repair. Plan is for a robotic repair of this left inguinal hernia after he holds his Coumadin 4 days preoperatively and will resume his Coumadin t he next day after surgery. He has seen Dr. Calloway and LV function echocardiogram 01/08/2018 40-45% . Resting regional wall motion abnormalities in the inferior wall, mild LV dilatation, felt to be as ymptomatic. He was seen by Dr. Calloway and deemed suitable for the above mentioned operation withou t further cardiac workup. ALLERGIES: None. TOBACCO: None. ALCOHOL: None. PAST MEDICAL HISTORY: 1. Coronary artery disease followed by Dr. Calloway cardiac bypass grafting and aortic valve in 2000 . 2. Left upper arm cephalic vein fistula 07/2016, functioning well providing dialysis access. 3. Laparoscopic cholecystectomy in 2000. MEDICATIONS: Glyburide 5 mg a day, Coumadin 6 mg once a day, amlodipine 5 mg a day, clonidine patch 24 hour weekly patch 1 mg, atorvastatin 20 mg a day, calcium acetate phosphate binder 667 mg 2 caps w ith meals orally 3 times a day, lisinopril 5 mg a day, carvedilol 6.25 mg a day. PAST MEDICAL HISTORY: 1. Coronary artery disease, stable, followed by Dr. Calloway. 2. End-stage renal disease on maintenance dialysis at [facility], followed by Dr. Travis leggett. 3. History of hypertension. 4. Gout. 5. Diabetes. REVIEW OF SYSTEMS: [place] otherwise noncontributory. Colonoscopy is up to date. PHYSICAL EXAMINATION: VITAL SIGNS: Weight 213 pounds, 75 inches 156/61, 52, 98.2 degrees. HEENT: Unremarkable. LUNGS: Clear to auscultation. CARDIAC: Regular rate and rhythm without murmur or gallop, prosthetic valve click. ABDOMEN: Soft, nontender. : Standing reveals testicles are normal. Left inguinal hernia on standing, enlarging on Valsalva, right groin without hernia evident on Valsalva standing exam. ASSESSMENT AND PLAN: 1. Left inguinal hernia. Plan robotic mesh repair outpatient under general anesthesia. Hold his Co umadin 4 days prior. Resume his Coumadin the next day. Plan outpatient and would keep him postopera tively if necessary, but currently outpatient surgery planned. Expectations of probable sustained ec chymosis penis, groins postoperatively and patient should not be alarmed. The risk of infection, ble eding, reoperation, recurrence of hernia discussed 2. Coronary artery disease, stable. Dr. Calloway cardiac clearance prior as noted above. He has al ready seen him and cleared him for the surgery. 3. End-stage renal disease on maintenance dialysis. 4. Diabetes. 5. Hypertension.
[2018-06-02 10:34] LABS: #Eosinphils 0.2 thou/uL (0.0-0.7); #Lymphocytes 1.1 thou/uL (1.20-3.40); #Monocytes 0.8 thou/uL (0.11-0.59); #Neutrophils 5.9 thou/uL (1.40-6.50); %Basophils 0.2 % (0.0-1.0); %Eosinophils 2.3 % (0.0-10.0); %Monocytes 10.4 % (0.0-10.0); %Neutrophils 73.2 % (42.0-75.0); Hemoglobin 12.9 g/dL (14.0-18.0); Mean Corpuscular HGB CONC 32.8 g/dL (32.0-36.0); Mean Corpuscular Hemoglobin 30.7 pg (27.0-31.0); Mean Corpuscular Volume 93.6 fL (78.0-98.0); Mean Platelet Volume 9.7 fL (7.4-10.4); Platelet Count 190 thou/uL (130-400); RBC Distribution Width 12.7 % (11.5-14.5); Red Blood Cell (RBC) Count 4.19 mill/uL (4.70-6.10); White Blood Cell (WBC) Count 8.1 thou/uL (4.8-10.8)
[2018-06-02 10:37] LABS: INR-International Normal Ratio 1.1; Prothrombin Time 14.4 SEC (12.0-14.7)
[2018-06-02] MEDS ORDERED: CEFAZOLIN/Water 2 GM/20 ML SYRINGE ONE (10:41)
[2018-06-02 10:51] LABS: Anion Gap 15 mmol/L (10-20); BUN (Urea Nitrogen) 32 mg/dL (8.4-25.7); Calc. Creatinine Clearance 14 mL/min (70-130); Calcium 9.9 mg/dL (7.8-10.44); Carbon Dioxide 27 mmol/L (23-31); Chloride 102 mmol/L (98-107); Estimated GFR-MDRD 10; Glucose 159 mg/dL (83-110); Potassium 4.2 mmol/L (3.5-5.1); Sodium 140 mmol/L (136-145)
[2018-06-02] MEDS ORDERED: Fentanyl 100 MCG/2 ML VIAL ONE (13:12)
[2018-06-02] MEDS ORDERED: Bupivacaine/Epinephrine 0.25% 30 ML VIAL ONE (13:13)
--- NOTE | 2018-06-03 08:10 | OP ---
PREOPERATIVE DIAGNOSES: Left inguinal hernia, end-stage renal disease on hemodialysis. POSTOPERATIVE DIAGNOSES: Left inguinal hernia, end-stage renal disease on hemodialysis. PROCEDURE: Robotic 3DMax Bard large mesh inguinal hernia repair, left indirect. SURGEON: Dr. Travis Moran. ANESTHESIA: General. Local 0.5% Marcaine with epinephrine.. Note, right side hernia clinically or laparoscopically. PROCEDURE IN DETAIL: Patient was taken to the operating room where under general anesthesia, Hilliard c atheter was placed at the beginning of the procedure and removed at the end. Abdomen was clipped of hair, prepared with ChloraPrep, draped in routine fashion. Just above the umbilicus, left midline in cision was made transversely carried down to skin and subcutaneous tissue and Veress needle was used to initiate pneumoperitoneum to 15 mmHg. Placed an 11 mm port balloon catheter held in place and tera ateral far lateral incision was made and an 8 mm port was placed. Robot was docked. Robotic inguina l hernia repair was undertaken and noticing a very large indirect inguinal hernia containing sigmoid colon. This was reduced. Right pelvis without hernia. Flap created robotically incision, hot sciss ors creating a flap transversely superior to the hernia defect and dissecting this flap medially and laterally identifying the Wu's ligament, pubic bone and laterally dissecting and then medially di ssecting the hernia sac free from the inferior epigastric vessels, keeping them free of harm. Cord s tructures were kept free of harm. Hernia sac dissected free, well 6 cm more and below the hernia def ect. A 3DMax Bard mesh was inserted and properly oriented, placed in the labeled portion medially ov er the pubic bone, securing it with 2-0 Vicryl and the mesh secured laterally to the abdominal wall l ateral to the epigastric vessels with 2-0 Vicryl. Good hemostasis was noted. Peritoneal flaps were closed with continuous suture 2-0 V-Loc. The needle was retrieved. Pneumoperitoneum reduced. All i nstruments were removed and all skin incisions were approximated with interrupted subdermal 4-0 Monoc ryl and DermaGlue applied.
== END 2018-06-02 17:30 | disposition home or self-care (01) ==
LOC: SDC 09:25
PROVIDERS: ATTEND Specialist
PROC: 0YU64JZ Supplement Left Inguinal Region with Synthetic Substitute, Percutaneous Endoscopic Approach (ICD-10-PCS; principal; 2018-06-02)
DX: K40.90 Unilateral inguinal hernia, without obstruction or gangrene, not specified as recurrent (principal); I12.0 Hypertensive chronic kidney disease with stage 5 chronic kidney disease or end stage renal disease; E11.22 Type 2 diabetes mellitus with diabetic chronic kidney disease; N18.6 End stage renal disease; I25.10 Atherosclerotic heart disease of native coronary artery without angina pectoris; M10.9 Gout, unspecified; I25.5 Ischemic cardiomyopathy; E78.2 Mixed hyperlipidemia; E66.8 Other obesity; Z68.26 Body mass index [BMI] 26.0-26.9, adult; Z79.01 Long term (current) use of anticoagulants; Z79.4 Long term (current) use of insulin; Z79.899 Other long term (current) drug therapy; Z95.2 Presence of prosthetic heart valve; Z95.5 Presence of coronary angioplasty implant and graft; Z99.2 Dependence on renal dialysis
CPT/HCPCS: 36415; 80048; 85025; 85610; 86850; 86900; 86901; C1781; J0131; J3010

== ENCOUNTER 2018-09-16 18:17 | Inpatient (IN) | payer MEDICARE ==
[2018-09-16] MEDS ORDERED: Piperacillin/Tazobactam 4.5 GM VIAL ONE (20:15)
[2018-09-16 20:28] LABS: CKMB 2.7 ng/mL (0-6.6)
[2018-09-16 20:32] LABS: PTT 47.9 SEC (22.9-36.1); Prothrombin Time 31.5 SEC (12.0-14.7)
[2018-09-16] MEDS ORDERED: HumaLOG 300 UNITS/3 ML VIAL SC PRN ×2 (21:42→23:46)
[2018-09-16] MEDS ORDERED: Dextrose 50% Abboject 50 ML SYRINGE SLOW IVP PRN (21:42)
[2018-09-16] MEDS ORDERED: Dextrose 5% in Water 1,000 ML IV PRN (21:42)
[2018-09-16 22:28] VITALS: BMI 24.8
--- NOTE | 2018-09-16 23:12 | HP ---
PRIMARY CARE PHYSICIAN: Out-of-town physician. CODE STATUS: Full code. TIME OF EVALUATION: 9:10 p.m. CHIEF COMPLAINT: Shortness of breath and cough. HISTORY OF PRESENT ILLNESS: This is an 82-year-old male patient transferred from [place] complaining of acute change in mental status, associated with fever for a week, shortness of breath. The patient is a dialysis patient, has received dialysis as scheduled, symptoms are severe, no clear triggers, no alleviating factors. Chest x-ray is showing possible pneumonia, the patient has been receiving treatment for it. The patient is unable to give any further history. He is confused, although talkative. Of note, the patient has a history of hypertension and CHF. REVIEW OF SYSTEMS: CONSTITUTIONAL: The patient has fever, chills, and generalized weakness. RESPIRATORY: The patient has cough, sputum production, and shortness of breath. CARDIOVASCULAR: No chest pain or palpitations. GASTROINTESTINAL: No nausea, no vomiting, diarrhea, or abdominal pain. TRESTLE BUILDER: The patient is confused. No headache or feeling lightheaded. GENITOURINARY: No burning on urination. EXTREMITIES: No leg swelling. All other systems were reviewed and negative except for the findings mentioned above. Information has been gathered from the patient. He is confused, but seems to be accurate. PAST MEDICAL HISTORY: Positive for end-stage renal disease, on dialysis, Friday , Friday, and Friday; diabetes type 2; and hyperlipidemia. PAST SURGICAL HISTORY: Aortic valve replacement, cardiac stents x3, surgical history of cholecystectomy. PSYCHIATRIC HISTORY: No previous psych history. SOCIAL HISTORY: No drug use. Former tobacco user. Smokes cigars. Smoking more than 10 years ago. FAMILY HISTORY: Unable to obtain. KNOWN ALLERGIES: No known drug allergies. REPORTED MEDICATIONS: 1. Atorvastatin. 2. Warfarin. 3. Calcium acetate. 4. Glipizide. 5. Lisinopril. 6. Carvedilol. 7. Lantus. PHYSICAL EXAMINATION: VITAL SIGNS: On presentation, blood pressure 144/75 with heart rate 75, respiratory rate was 23, temperature 97.8, pain 0/10, oxygen saturation 97 on room air. GENERAL APPEARANCE: The patient is alert, is oriented, not in any acute distress. HEENT: Eyes, normal conjunctiva. Moist oral mucosa. Anicteric. No JVD. RESPIRATORY: Bilateral air entry. No rales. No wheezes. Symmetric expansion. CARDIOVASCULAR: Normal rate, regular rhythm. No murmurs, no gallops. No edema. ABDOMEN: Soft, normal bowel sounds. MUSCULOSKELETAL: Baseline range of motion and strength. No tenderness. SKIN: Warm, intact. No pallor. No rash. No redness. Peripheral pulses are present. Capillary refill seems to be intact. NEUROLOGIC: The patient is confused. Cranial nerves seems to be intact. PSYCHIATRIC: Unable to fully explore. The patient is confused. Not in any acute distress. DIAGNOSTIC STUDIES: EKG was reviewed. The patient has sinus rhythm with occasional premature ventricular complexes. Ventricular rate 71, AR 192, QRS 128, QT corrected 486, left ventricular hypertrophy with QRS widening and repolarization abnormalities. Chest x-ray, cardiomegaly with mild vascular engorgement suggesting some edema, bibasilar lung changes are prominent in the left lung, could be related to effusion with atelectases, possible infiltrate. PA lateral and chest film will be helpful. Influenza was done and was negative. White count 9.4, hemoglobin 13.3, and platelet count 118. BNP greater than 4500. Sodium 132, potassium 3.4, chloride 95, carbon dioxide 26, anion gap 14.4, glucose 176, BUN 26, creatinine 2.8, GFR 18, calcium 9.7, bilirubin 3.9, total bilirubin 1.1. Alkaline phosphatase 92, total protein 7.2, LFTs were negative. ASSESSMENT AND PLAN: The patient will be placed in the hospital with following medical problems: 1. Acute encephalopathy, likely secondary to underlying infection. We will treat the underlying problem, the patient will need assistant media buyer as inpatient. 2. End-stage renal disease on hemodialysis. The patient will need hemodialysis and the patient will need to consult Nephro for that reason. 3. Possible pneumonia is seen on chest x-ray, the patient has been started on antibiotics. The patient is a hemolyzed patient. We will treat for possible healthcare-associated pneumonia. We will adjust treatment as per sensitivity. Pharmacy to adjust medications for kidney function. 4. History of hypertension, this is chronic, it is uncontrolled. Systolic blood pressure 144, due to hypertension. Reconcile home medications, adjust treatment as needed. 5. Diabetes, it is uncontrolled, blood sugar 176, likely uncontrolled due to infection. The patient started on a sliding scale, reconcile home medications, adjust as needed. 6. Deep venous thrombosis prophylaxis. 7. Risk assessment, high risk due to new change in mental status, acute encephalopathy. Job ID: [id number] MTDD
[2018-09-16 23:36] LABS: Troponin I 0.168 ng/mL (< 0.028)
[2018-09-17 02:28] LABS: Troponin I 0.166 ng/mL (< 0.028)
[2018-09-17] MEDS ORDERED: Benzonatate 100 MG CAP PO PRN (03:30)
[2018-09-17] MEDS: Piperacillin/Tazobactam 2.25 GM in Sodium Chloride 0.9% 100 ML IVPB SCH ×3 (05:56→21:55)
[2018-09-17] MEDS ORDERED: Bisacodyl 10 MG SUPP PR PRN (07:28)
[2018-09-17] MEDS ORDERED: Eucerin (Mineral Oil/Petrolatum,White) 30 gm Jar TOP PRN (07:28)
[2018-09-17] MEDS ORDERED: Diabetic Tussin 200 MG/10 ML UDCUP PO PRN (07:28)
[2018-09-17] MEDS ORDERED: Ondansetron PF 4 MG/2 ML Vial IVP PRN (07:28)
[2018-09-17] MEDS ORDERED: Senokot S 8.6-50 MG TAB PO PRN (07:28)
[2018-09-17] MEDS ORDERED: Loratadine 10 MG TAB PO PRN (07:28)
[2018-09-17] MEDS ORDERED: Ondansetron ODT 4 MG TAB PO PRN (07:28)
[2018-09-17] MEDS ORDERED: hydrALAZINE 20 MG/ML VIAL SLOW IVP PRN (07:28)
[2018-09-17] MEDS ORDERED: Cepastat Lozenges 1 LOZ PO PRN (07:28)
[2018-09-17] MEDS ORDERED: Sodium Chloride 0.65% Nasal 44 ML BOT EA NARE PRN (07:28)
[2018-09-17] MEDS ORDERED: Artificial Tears 18 DROP/0.9 ML EA EYE PRN (07:28)
[2018-09-17] MEDS ORDERED: WARFARIN PO SCH (07:31)
[2018-09-17 08:48] LABS: Lactic Acid 1.3 mmol/L (0.5-2.2)
[2018-09-17 08:54] LABS: ALT (SGPT) 32 U/L (8-55); AST (SGOT) 27 U/L (5-34); Albumin 3.6 g/dL (3.4-4.8); Alkaline Phosphatase 87 U/L (40-150); Anion Gap 15 mmol/L (10-20); BUN (Urea Nitrogen) 40 mg/dL (8.4-25.7); Bilirubin, Total 1.1 mg/dL (0.2-1.2); Calc. Creatinine Clearance 16 mL/min (70-130); Calcium 9.6 mg/dL (7.8-10.44); Carbon Dioxide 28 mmol/L (23-31); Chloride 101 mmol/L (98-107); Estimated GFR-MDRD 12; Globulin 2.6 g/dL (2.4-3.5); Glucose 96 mg/dL (83-110); Potassium 3.6 mmol/L (3.5-5.1); Protein, Total 6.2 g/dL (5.8-8.1); Sodium 140 mmol/L (136-145)
[2018-09-17] MEDS ORDERED: Prevnar 13-Val Conj/PF 0.5 ML SYRINGE IM ONE (09:00)
[2018-09-17] MEDS ORDERED: Lisinopril 5 MG TAB PO SCH (09:00)
[2018-09-17] MEDS: glipiZIDE 5 MG TAB PO SCH ×2 (09:17→17:36)
[2018-09-17] MEDS: Atorvastatin Calcium 40 MG TAB PO SCH (09:17)
[2018-09-17] MEDS: Carvedilol 6.25 MG TAB PO SCH ×2 (09:17→21:01)
[2018-09-17] MEDS: Calcium Acetate 667 MG CAP PO SCH ×3 (09:17→17:36)
[2018-09-17] MEDS: Insulin Glargine 10 UNITS in Pre-Filled Syringe 1 EACH SC SCH (09:18)
[2018-09-17] MEDS: Montelukast Sodium 10 mg Tablet PO SCH (09:19)
[2018-09-17] MEDS: Saccharomyces boulardii 250 MG CAP PO SCH (09:19)
--- NOTE | 2018-09-17 09:23 | RAD ---
PORTABLE CHEST: History: Pneumonia. Shortness of breath. Comparison: 11-11-17 FINDINGS: Cardiomegaly. Mild vascular congestion. I cannot exclude small left effusion and left basilar atelect asis and/or infiltrate. No confluent consolidation apparent. IMPRESSION: Cardiomegaly and mild vascular congestion noted. POS: [facility]
--- NOTE | 2018-09-17 10:41 | PDOC.PN ---
- Subjective Encounter Start Date: 09/17/18 Encounter Start Time: 07:00 -: old records requested/rev Patient seen and examined. No new complaints. No overnight events pt has cough, he has some confusion - Objective MAR Reviewed: Yes Vital Signs & Weight: Vital Signs (12 hours) Temp Pulse Resp BP Pulse Ox 09/17/18 09:18 70 09/17/18 07:12 97.8 F 70 18 160/76 H 94 L 09/17/18 04:30 98 F 70 20 144/65 H 93 L 09/17/18 01:12 96 Weight Weight 198 lb 12.8 oz I&O: 09/16/18 09/17/18 09/18/18 06:59 06:59 06:59 Intake Total 240 Output Total 0 Balance 240 Result Diagrams: 09/17/18 07:44 Additional Labs: Accuchecks 09/17/18 09/16/18 05:04 22:58 POC Glucose 93 340 H Radiology Reviewed by me: Yes (chest xray reviewed) EKG Reviewed by me: Yes (nsr) Phys Exam - Physical Examination Constitutional: NAD HEENT: PERRLA, moist MMs, sclera anicteric Neck: no JVD, supple Respiratory: wheezing present few basal rales Cardiovascular: RRR, no significant murmur, no rub Gastrointestinal: soft, non-tender, no distention, positive bowel sounds Musculoskeletal: no edema, pulses present Neurological: non-focal, normal sensation, moves all 4 limbs Lymphatic: no nodes Psychiatric: normal affect, A&O x 3 Skin: no rash, normal turgor Dx/Plan (1) Acute bronchitis Code(s): J20.9 - ACUTE BRONCHITIS, UNSPECIFIED Status: Acute (2) Acute encephalopathy Code(s): G93.40 - ENCEPHALOPATHY, UNSPECIFIED Status: Acute Comment: due to metabolic etiology (3) Demand ischemia Code(s): I24.8 - OTHER FORMS OF ACUTE ISCHEMIC HEART DISEASE Status: Acute (4) Chronic anticoagulation Code(s): Z79.01 - MCC (CURRENT) USE OF 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 Status: Chronic (5) Diabetes type 2, controlled Code(s): E11.9 - TYPE 2 DIABETES MELLITUS WITHOUT COMPLICATIONS Status: Chronic (6) Dyslipidemia Code(s): E78.5 - HYPERLIPIDEMIA, UNSPECIFIED Status: Chronic (7) ESRD (end stage renal disease) on dialysis Code(s): N18.6 - END STAGE RENAL DISEASE; Z99.2 - DEPENDENCE ON RENAL DIALYSIS Status: Chronic (8) H/O prosthetic aortic valve replacement Code(s): Z95.2 - PRESENCE OF PROSTHETIC HEART VALVE Status: Chronic (9) Hypertension Code(s): I10 - ESSENTIAL (PRIMARY) HYPERTENSION Status: Chronic (10) Secondary hyperparathyroidism of renal origin Code(s): N25.81 - SECONDARY HYPERPARATHYROIDISM OF RENAL ORIGIN Status: Chronic - Plan cont current plan of care, plan discussed w/ family, continue antibiotics, respiratory therapy * continue zosyn * nephrology consulted for HD * will get echo * discussed with family bedside * will monitor. * home medication reconciled * monitor INR * medication reviewed as below * symptomatic treatment Review of Systems - Review of Systems Eyes: negative: Pain, Vision Change, Conjunctivae Inflammation, Eyelid Inflammation, Redness, Other ENT: negative: Ear Pain, Ear Discharge, Nose Pain, Nose Discharge, Nose Congestion, Mouth Pain, Mouth Swelling, Throat Pain, Throat Swelling, Other Respiratory: Cough, Sputum. negative: Dry, Shortness of Breath, Hemoptysis, SOB with Excertion, Pleuritic Pain, Wheezing Cardiovascular: negative: chest pain, palpitations, orthopnea, paroxysmal nocturnal dyspnea, edema, light headedness, other Gastrointestinal: negative: Nausea, Vomiting, Abdominal Pain, Diarrhea, Constipation, Melena, Hematochezia, Other Genitourinary: negative: Dysuria, Frequency, Incontinence, Hematuria, Retention , Other Musculoskeletal: negative: Neck Pain, Shoulder Pain, Arm Pain, Back Pain, Hand Pain, Leg Pain, Foot Pain, Other Skin: negative: Rash, Lesions, Darin, Bruising, Other - Medications/Allergies Allergies/Adverse Reactions: Allergies Allergy/AdvReac Type Severity Reaction Status Date / Time No Known Allergies Allergy Verified 09/16/18 22:40 Medications: Current Medications Artificial Tears (Tears Naturale) 2 drop EA EYE PRN PRN PRN Reason: Dry Eyes Atorvastatin Calcium ([facility]) [facility] [place] Last Admin: 09/17/18 09:17 Dose: 40 mg Benzonatate (Tessalon) 200 mg PO Q6H PRN PRN Reason: Cough Bisacodyl (Dulcolax) 10 mg [place] DAILYPRN PRN PRN Reason: Constipation Calcium Acetate (Phoslo) 1,[address] [facility] Last Admin: 09/17/18 09:17 Dose: 1,334 mg Carvedilol (Coreg) 6.25 mg PO BID [facility] Last Admin: 09/17/18 09:17 Dose: 6.25 mg Dextrose/Water (Dextrose 50%) 25 gm SLOW IVP PRN PRN PRN Reason: Hypoglycemia Glipizide (Glucotrol) 5 mg PO BID[facility] Last Admin: 09/17/18 09:17 Dose: 5 mg Glucagon (Glucagon) 1 mg IM PRN PRN PRN Reason: Hypoglycemia Guaifenesin (Robitussin Sf) 200 mg PO Q4H PRN PRN Reason: Cough Hydralazine HCl (Apresoline) 10 mg SLOW IVP Q4H PRN PRN Reason: SBP > 180 and HR < 70 Piperacillin Sod/Tazobactam (Sod 2.25 gm/ Sodium Chloride) 100 mls @ 200 mls/ hr IVPB Q8HR [facility] Last Admin: 09/17/18 05:56 Dose: 100 mls Dextrose/Water (D5w) 1,000 mls @ 0 mls/hr IV .Q0M PRN PRN Reason: Hypoglycemia Insulin Glargine 10 units/ (Miscellaneous Medication) 0.1 mls @ 0 mls/hr SC QAM [facility] Last Admin: 09/17/18 09:18 Dose: 0.1 mls Insulin Human Lispro (Humalog) 0 units SC .MILD SLIDING SCALE PRN PRN Reason: Mild Correctional Scale Insulin Human Lispro (Humalog) 0 units SC .BEDTIME SLIDING SC PRN PRN Reason: Bedtime Correctional Scale Last Admin: 09/17/18 00:01 Dose: 4 unit Lisinopril (Zestril) 5 mg PO DAILY [facility] Last Admin: 09/17/18 09:18 Dose: 5 mg Loratadine (Claritin) 10 mg PO DAILYPRN PRN PRN Reason: Sinus Symptoms Mineral Oil/White Petrolatum (Eucerin Cream) 0 gm TOP BIDPRN PRN PRN Reason: Dry Skin Miscellaneous Medication (Pharmacy To Dose) 1 each IVPB PRN PRN PRN Reason: DOSING Miscellaneous Medication (Pharmacy To Dose) 1 each PO ASDIR [facility] Montelukast Sodium (Singulair) 10 mg PO DAILY [facility] Last Admin: 09/17/18 09:19 Dose: 10 mg Ondansetron HCl (Zofran Odt) 4 mg PO Q6H PRN PRN Reason: Nausea/Vomiting Ondansetron HCl (Zofran) 4 mg IVP Q6H PRN PRN Reason: Nausea/Vomiting Saccharomyces Boulardii (Florastor) 250 mg PO DAILY [facility] Last Admin: 09/17/18 09:19 Dose: 250 mg Senna/Docusate Sodium (Senokot S) 2 tab PO BID PRN PRN Reason: Constipation Sodium Chloride ([place] Nasal [place] 0.65%) 0 ml EA NARE QIDPRN PRN PRN Reason: Nasal Congestion Sodium Chloride (Flush - Normal Saline) 10 ml IVF Q12HR [facility] Last Admin: 09/17/18 09:20 Dose: 10 ml Sodium Chloride (Flush - Normal Saline) 10 ml IVF PRN PRN PRN Reason: Saline Flush Throat Lozenges (Cepastat Lozenges) 1 keena PO Q2H PRN PRN Reason: Sore Throat
[2018-09-17 14:05] LABS: Band 7 % (5-11); Eosinophils 1 % (0-10); Hemoglobin 12.6 g/dL (14.0-18.0); Lymphocytes 4 % (21-51); MDiff Complete? YES; Mean Corpuscular Hemoglobin 29.2 pg (27.0-31.0); Mean Corpuscular Volume 91.4 fL (78.0-98.0); Mean Platelet Volume 10.1 fL (7.4-10.4); Monocytes 5 % (0-10); Neutrophil 83 % (42-75); Platelet Count 128 thou/uL (130-400); Platelet Morphology Comment Appears Decreased; RBC Distribution Width 13.8 % (11.5-14.5); Red Blood Cell (RBC) Count 4.31 mill/uL (4.70-6.10); White Blood Cell (WBC) Count 8.4 thou/uL (4.8-10.8)
--- NOTE | 2018-09-17 15:53 | PQF ---
CLINICAL DOCUMENTATION IMPROVEMENT CLARIFICATION FORM: ICD-10 Updated PLEASE DO AN ADDENDUM TO THE PROGRESS NOTE WITH ANY DOCUMENTATION UPDATES OR ADDITIONS AND CARRY THROUGH TO DC SUMMARY. THANK YOU. DATE: 09/17/18 ATTN: DR. PHILLIPS Please exercise your independent, professional judgment in responding to the clarification form. Clinical indicators are provided on the bottom of this form for your review Please check appropriate box(s) to clarify if the following diagnosis has been ruled in or ruled out: "PNEUMONIA" [ ] Ruled in diagnosis [ ] Continue to treat [ ] Resolved [ x ] Ruled out diagnosis [ ] Cannot rule out diagnosis [ ] Other diagnosis [ ] Unable to determine In addition, please specify: Present on Admission (POA): [ ] Yes [ x] No [ ] Unable to determine For continuity of documentation, please document condition throughout progress notes and discharge summary. Thank You. CLINICAL INDICATORS - SIGNS / SYMPTOMS / LABS ER NOTE: "PNEUMONIA" H&P: "POSSIBLE PNEUMONIA IS SEEN ON CHEST X-RAY" PROGRESS NOTE 09/17: "ACUTE BRONCHITIS" CHEST XRAY: "MILD VASCULAR CONGESTION. I CANNOT EXCLUDE SMALL LEFT PLEURAL EFFUSION AND LEFT BASILAR ATELECTASIS AND/OR INFILTRATE." RISKS: COUGH AND FEVER X 1 WEEK FORMER TOBACCO USE ADVANCED AGE TREATMENT: IV ZOSYN (ER-PRESENT) CHEST XRAY [employer] Winform Viewer(This form is maintained as a part of the permanent medical record) 2014 [employer]. All Rights Reserved IVAN [email or web address] Office: [phone] [facility]
[2018-09-17] MEDS ORDERED: Warfarin Sodium 3 MG TAB PO SCH (17:00)
[2018-09-17] MEDS: Warfarin Sodium 3 MG TAB PO SCH (17:37)
--- NOTE | 2018-09-17 22:36 | CON ---
DATE OF CONSULTATION: HISTORY OF PRESENT ILLNESS: The patient is an unfortunate 82-year-old gentleman with a history of coronary artery disease, who presented with increasing coughing and weakness. The patient has a long history of coronary artery disease. He previously underwent coronary bypass surgery and aortic valve replaced in 2000. In 2014, the patient underwent a cardiac catheterization, was found to have a mild decrease in left ventricular systolic function and had patent coronary bypass grafts. The patient underwent a preoperative cardiac evaluation prior to undergoing hernia surgery. He underwent a stress test revealing left ventricular ejection fraction of 46% with lateral ischemia and the apex was akinetic. The patient unfortunately suffered a cerebrovascular accident after the surgery. The patient was in his usual state of health when he presented with increasing weakness and coughing. The patient has been weak ever since his stroke and at times been confused. The patient denies having any chest discomfort. PAST MEDICAL HISTORY: 1. Coronary artery disease. 2. Aortic valve replacement. 3. Diabetes mellitus. 4. Hypertension. 5. Dyslipidemia. 6. End-stage renal disease. PAST SURGICAL HISTORY: Cholecystectomy, aortic valve replacement. ALLERGIES: NO KNOWN DRUG ALLERGIES. MEDICATIONS ON ADMISSION: 1. Lisinopril 5 mg p.o. b.i.d. 2. Coumadin 6 at bedtime. 3. Coreg 6.25 b.i.d. REVIEW OF SYSTEMS: Ten-point system otherwise unremarkable. The patient does report ecchymoses over his left shoulder. PHYSICAL EXAMINATION: GENERAL: This is a well-developed gentleman. VITAL SIGNS: Blood pressure 150/72. NECK: Showed no jugular venous distention. LUNGS: Coarse breath sounds bilateral. HEART: Regular rate and rhythm with a normal S1, S2 and aortic click, 2/6 systolic murmur. ABDOMEN: Nondistended. EXTREMITIES: Showed trace edema. VASCULAR: Radial pulses are 2+. LABORATORY DATA: White blood cell count 8.4, hemoglobin 12.6, hematocrit 39.4, and platelets 128. Sodium is 140, potassium 3.6, chloride 101, bicarbonate 28, BUN 40, creatinine 4.53, glucose was 96. Troponin 0.166. His EKG revealed normal sinus rhythm with left axis deviation, left ventricular hypertrophy. Echocardiogram revealed a severe decrease in left ventricular systolic function. Estimated ejection fraction approximately 20%. IMPRESSION: 1. Congestive heart failure. 2. Severe cardiomyopathy. 3. History of coronary bypass surgery. 4. History of aortic valve replacement. 5. End-stage renal disease. 6. Hypertension. 7. Diabetes mellitus. 8. History of a cerebrovascular accident. This gentleman presents with mild congestive heart failure. From a cardiac standpoint, there has been a marked reduction in left ventricular function since he suffered a cerebrovascular accident. At this time, would recommend he switch to Entresto. Will discontinue his lisinopril. Will add aspirin therapy. We will follow this patient with you through his hospitalization. Job ID: [id number] [facility] CENTERMaryanne
[2018-09-18 05:10] LABS: INR-International Normal Ratio 3.1; Prothrombin Time 31.9 SEC (12.0-14.7)
[2018-09-18] MEDS: Piperacillin/Tazobactam 2.25 GM in Sodium Chloride 0.9% 100 ML IVPB SCH ×3 (05:52→22:06)
[2018-09-18] MEDS: Calcium Acetate 667 MG CAP PO SCH ×3 (07:11→15:11)
[2018-09-18] MEDS: Carvedilol 6.25 MG TAB PO SCH ×2 (08:47→22:05)
[2018-09-18] MEDS: Aspirin 81 mg Enteric Coated Tablet PO SCH (08:47)
[2018-09-18] MEDS: Atorvastatin Calcium 40 MG TAB PO SCH (08:47)
[2018-09-18] MEDS: glipiZIDE 5 MG TAB PO SCH ×2 (08:47→17:05)
[2018-09-18] MEDS: Insulin Glargine 10 UNITS in Pre-Filled Syringe 1 EACH SC SCH (08:47)
[2018-09-18] MEDS: Montelukast Sodium 10 mg Tablet PO SCH (08:48)
[2018-09-18] MEDS: Saccharomyces boulardii 250 MG CAP PO SCH (08:48)
[2018-09-18] MEDS ORDERED: PROPOFOL 20 ML ONE (09:12)
[2018-09-18] MEDS ORDERED: KETAMINE 100 MG/ML (5ML VIAL) ONE (09:17)
--- NOTE | 2018-09-18 10:55 | PDOC.PN ---
- Subjective Encounter Start Date: 09/18/18 Encounter Start Time: 08:00 -: old records requested/rev Patient seen and examined. No new complaints. No overnight events he had MC today - Objective MAR Reviewed: Yes Vital Signs & Weight: Vital Signs (12 hours) Temp Pulse Resp BP BP Pulse Ox 09/18/18 08:00 96 09/18/18 07:59 97.5 F L 68 16 153/74 H 96 09/18/18 04:15 97.8 F 63 18 118/59 L 96 09/18/18 00:05 97.7 F 62 16 134/62 96 Weight Weight 198 lb 12.8 oz I&O: 09/17/18 09/18/18 09/19/18 06:59 06:59 06:59 Intake Total 240 1490 Output Total 0 Balance 240 1490 Result Diagrams: 09/17/18 07:44 09/17/18 07:44 Additional Labs: Accuchecks 09/18/18 09/17/18 09/17/18 05:45 20:54 17:39 POC Glucose 107 215 H 178 H 09/17/18 10:33 POC Glucose 199 H Radiology Reviewed by me: Yes (echo noted) EKG Reviewed by me: Yes Phys Exam - Physical Examination Constitutional: NAD HEENT: PERRLA, moist MMs, sclera anicteric Neck: no JVD, supple Respiratory: no wheezing, no rales, no rhonchi Cardiovascular: RRR, no rub SM+ Gastrointestinal: soft, non-tender, no distention, positive bowel sounds Musculoskeletal: no edema, pulses present Neurological: non-focal, normal sensation Lymphatic: no nodes Psychiatric: normal affect, A&O x 3 Skin: no rash, normal turgor Dx/Plan (1) Acute bronchitis Code(s): J20.9 - ACUTE BRONCHITIS, UNSPECIFIED Status: Acute (2) Acute encephalopathy Code(s): G93.40 - ENCEPHALOPATHY, UNSPECIFIED Status: Resolved Comment: due to metabolic etiology (3) Demand ischemia Code(s): I24.8 - OTHER FORMS OF ACUTE ISCHEMIC HEART DISEASE Status: Acute (4) Chronic anticoagulation Code(s): Z79.01 - HALF-WAY (CURRENT) USE OF 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 Status: Chronic (5) Diabetes type 2, controlled Code(s): E11.9 - TYPE 2 DIABETES MELLITUS WITHOUT COMPLICATIONS Status: Chronic (6) Dyslipidemia Code(s): E78.5 - HYPERLIPIDEMIA, UNSPECIFIED Status: Chronic (7) ESRD (end stage renal disease) on dialysis Code(s): N18.6 - END STAGE RENAL DISEASE; Z99.2 - DEPENDENCE ON RENAL DIALYSIS Status: Chronic (8) H/O prosthetic aortic valve replacement Code(s): Z95.2 - PRESENCE OF PROSTHETIC HEART VALVE Status: Chronic (9) Hypertension Code(s): I10 - ESSENTIAL (PRIMARY) HYPERTENSION Status: Chronic (10) Secondary hyperparathyroidism of renal origin Code(s): N25.81 - SECONDARY HYPERPARATHYROIDISM OF RENAL ORIGIN Status: Chronic (11) Acute on chronic systolic ACC/AHA stage C congestive heart failure Code(s): I50.23 - ACUTE ON CHRONIC SYSTOLIC (CONGESTIVE) HEART FAILURE Status : Acute (12) Pulmonary hypertension Code(s): I27.20 - PULMONARY HYPERTENSION, UNSPECIFIED Status: Acute - Plan cont current plan of care, continue antibiotics, respiratory therapy * MC done * today HD * continue zosyn * will need to start entresto * medication reviewed as below * symptomatic treatment. Review of Systems - Review of Systems ENT: negative: Ear Pain, Ear Discharge, Nose Pain, Nose Discharge, Nose Congestion, Mouth Pain, Mouth Swelling, Throat Pain, Throat Swelling, Other Respiratory: Cough. negative: Dry, Shortness of Breath, Hemoptysis, SOB with Excertion, Pleuritic Pain, Sputum, Wheezing Cardiovascular: negative: chest pain, palpitations, orthopnea, paroxysmal nocturnal dyspnea, edema, light headedness, other Gastrointestinal: negative: Nausea, Vomiting, Abdominal Pain, Diarrhea, Constipation, Melena, Hematochezia, Other Genitourinary: negative: Dysuria, Frequency, Incontinence, Hematuria, Retention , Other Musculoskeletal: negative: Neck Pain, Shoulder Pain, Arm Pain, Back Pain, Hand Pain, Leg Pain, Foot Pain, Other Skin: negative: Rash, Lesions, Darin, Bruising, Other - Medications/Allergies Allergies/Adverse Reactions: Allergies Allergy/AdvReac Type Severity Reaction Status Date / Time No Known Allergies Allergy Verified 09/16/18 22:40 Medications: Current Medications Artificial Tears (Tears Naturale) 2 drop EA EYE PRN PRN PRN Reason: Dry Eyes Aspirin (Ecotrin) 81 mg PO DAILY [facility] Last Admin: 09/18/18 08:47 Dose: Not Given Atorvastatin Calcium (Lipitor) [facility] [place] Last Admin: 09/18/18 08:47 Dose: Not Given Benzonatate (Tessalon) 200 mg PO Q6H PRN PRN Reason: Cough Bisacodyl (Dulcolax) 10 mg [place] DAILYPRN PRN PRN Reason: Constipation Calcium Acetate (Phoslo) 1,334 mg PO [facility] Last Admin: 09/18/18 07:11 Dose: 1,334 mg Carvedilol (Coreg) 6.25 mg PO BID [facility] Last Admin: 09/18/18 08:47 Dose: Not Given Dextrose/Water (Dextrose 50%) 25 gm SLOW IVP PRN PRN PRN Reason: Hypoglycemia [facility]) [facility] Last Admin: 09/18/18 08:47 Dose: Not Given Glucagon (Glucagon) 1 mg IM PRN PRN PRN Reason: Hypoglycemia Guaifenesin (Robitussin Sf) 200 mg PO Q4H PRN PRN Reason: Cough Last Admin: 09/18/18 05:58 Dose: 200 mg Hydralazine HCl (Apresoline) 10 mg SLOW IVP Q4H PRN PRN Reason: SBP > 180 and HR < 70 Piperacillin Sod/Tazobactam (Sod 2.25 gm/ Sodium Chloride) 100 mls @ 200 mls/ hr IVPB Q8HR [facility] Last Admin: 09/18/18 05:52 Dose: 100 mls Dextrose/Water (D5w) 1,000 mls @ 0 mls/hr IV .Q0M PRN PRN Reason: Hypoglycemia Insulin Glargine 10 units/ (Miscellaneous Medication) 0.1 mls @ 0 mls/hr SC [facility] Last Admin: 09/18/18 08:47 Dose: Not Given Insulin Human Lispro (Humalog) 0 units SC .MILD SLIDING SCALE PRN PRN Reason: Mild Correctional Scale Insulin Human Lispro (Humalog) 0 units SC .BEDTIME SLIDING SC PRN PRN Reason: Bedtime Correctional Scale Last Admin: 09/17/18 00:01 Dose: 4 unit Loratadine (Claritin) 10 mg PO DAILYPRN PRN PRN Reason: Sinus Symptoms Mineral Oil/White Petrolatum (Eucerin Cream) 0 gm TOP BIDPRN PRN PRN Reason: Dry Skin Miscellaneous Medication (Pharmacy To Dose) 1 each IVPB PRN PRN PRN Reason: DOSING Miscellaneous Medication (Pharmacy To Dose) 1 each PO ASDIR [facility] Montelukast Sodium (Singulair) 10 mg PO DAILY [facility] Last Admin: 09/18/18 08:48 Dose: Not Given Ondansetron HCl (Zofran Odt) 4 mg PO Q6H PRN PRN Reason: Nausea/Vomiting Ondansetron HCl (Zofran) 4 mg IVP Q6H PRN PRN Reason: Nausea/Vomiting Saccharomyces Boulardii (Florastor) 250 mg PO DAILY [facility] Last Admin: 09/18/18 08:48 Dose: Not Given Sacubitril/Valsartan (Entresto 24.5 Mg-25.5 Mg Tablet) 1 tab PO BID [facility] Senna/Docusate Sodium (Senokot S) 2 tab PO BID PRN PRN Reason: Constipation Sodium Chloride ([place] Nasal [place] 0.65%) 0 ml EA NARE QIDPRN PRN PRN Reason: Nasal Congestion Sodium Chloride (Flush - Normal Saline) 10 ml IVF Q12HR [facility] Last Admin: 09/18/18 08:48 Dose: Not Given Sodium Chloride (Flush - Normal Saline) 10 ml IVF PRN PRN PRN Reason: Saline Flush Last Admin: 09/18/18 05:54 Dose: 10 ml Throat Lozenges (Cepastat Lozenges) 1 keena PO Q2H PRN PRN Reason: Sore Throat Warfarin Sodium (Coumadin) 6 mg PO 1700 [facility] Last Admin: 09/17/18 17:37 Dose: 6 mg
[2018-09-18 12:21] LABS: HBSAg Index 0.26 S/CO (0-0.99); Hep B Surf Ag Non-Reactive S/CO (NonReactive)
[2018-09-18] MEDS ORDERED: PROPOFOL 200 MG/20 ML VIAL ONE (13:46)
[2018-09-18] MEDS: Warfarin Sodium 3 MG TAB PO SCH (17:01)
--- NOTE | 2018-09-18 17:24 | ECHO ---
This is an 82-year-old gentleman with a prosthetic valve and cardiomyopathy. DESCRIPTION OF PROCEDURE: The patient was taken to the PACU. The patient was sedated by anesthesiology. A transesophageal pro be was placed into the distal esophagus and stomach. Echocardiographic images were obtained. The tr ansesophageal probe was removed. FINDINGS: 1. Severe decrease in left ventricular systolic function. 2. The left ventricle is markedly dilated. 3. Mild to moderate mitral regurgitation. 4. Mild to moderate tricuspid regurgitation. 5. Prosthetic mechanical aortic valve was noted which appeared to have adequate excursion of the neeta flets with small perivalvular leaks noted. 6. Atherosclerotic debris in the descending aorta. IMPRESSION: Mechanical prosthetic valve which appears to have normal function except for small perivalvular leak. CC: Dr. Gross
[2018-09-19] MEDS: Piperacillin/Tazobactam 2.25 GM in Sodium Chloride 0.9% 100 ML IVPB SCH ×3 (05:24→21:34)
[2018-09-19 05:47] LABS: INR-International Normal Ratio 3.1; Prothrombin Time 32.3 SEC (12.0-14.7)
[2018-09-19] MEDS: Calcium Acetate 667 MG CAP PO SCH ×3 (06:35→19:21)
[2018-09-19] MEDS: Sacubitril 24.5 MG/Valsartan 25.5 MG TABLET PO SCH ×2 (09:17→21:34)
[2018-09-19] MEDS: Aspirin 81 mg Enteric Coated Tablet PO SCH (09:17)
[2018-09-19] MEDS: Carvedilol 6.25 MG TAB PO SCH ×2 (09:17→21:33)
[2018-09-19] MEDS: Saccharomyces boulardii 250 MG CAP PO SCH (09:17)
[2018-09-19] MEDS: glipiZIDE 5 MG TAB PO SCH ×2 (09:17→19:21)
[2018-09-19] MEDS: Atorvastatin Calcium 40 MG TAB PO SCH (09:17)
[2018-09-19] MEDS: Insulin Glargine 10 UNITS in Pre-Filled Syringe 1 EACH SC SCH (09:18)
[2018-09-19] MEDS: Montelukast Sodium 10 mg Tablet PO SCH (09:18)
--- NOTE | 2018-09-19 11:42 | PDOC.PN ---
- Subjective Encounter Start Date: 09/19/18 Encounter Start Time: 08:00 Patient seen and examined. No new complaints. No overnight events - Objective Resuscitation Status - Order Detail: 09/18/18 11:31 Resuscitation Status Routine Resuscitation Status: FULL: Full Resuscitation MAR Reviewed: Yes Vital Signs & Weight: Vital Signs (12 hours) Temp Pulse Resp BP BP Pulse Ox 09/19/18 09:17 148/72 H 09/19/18 03:00 98.2 F 64 19 131/63 95 09/18/18 23:56 55 L 117/56 L Weight Weight 198 lb 12.8 oz I&O: 09/18/18 09/19/18 09/20/18 06:59 06:59 06:59 Intake Total 1490 1090 Output Total 3500 Balance 1490 -2410 Result Diagrams: 09/17/18 07:44 09/17/18 07:44 Additional Labs: Accuchecks 09/19/18 09/18/18 09/18/18 05:41 20:20 17:22 POC Glucose 135 H 220 H 237 H 09/18/18 09/18/18 17:05 15:03 POC Glucose 204 H 67 L EKG Reviewed by me: Yes Phys Exam - Physical Examination Constitutional: NAD HEENT: PERRLA, moist MMs, sclera anicteric Neck: no JVD, supple Respiratory: no wheezing, no rales, no rhonchi SM+ Gastrointestinal: soft, non-tender, no distention, positive bowel sounds Musculoskeletal: no edema, pulses present Neurological: non-focal, normal sensation, moves all 4 limbs Lymphatic: no nodes Psychiatric: normal affect, A&O x 3 Skin: no rash, normal turgor Dx/Plan (1) Acute bronchitis Code(s): J20.9 - ACUTE BRONCHITIS, UNSPECIFIED Status: Acute (2) Acute encephalopathy Code(s): G93.40 - ENCEPHALOPATHY, UNSPECIFIED Status: Resolved Comment: due to metabolic etiology (3) Demand ischemia Code(s): I24.8 - OTHER FORMS OF ACUTE ISCHEMIC HEART DISEASE Status: Acute (4) Chronic anticoagulation Code(s): Z79.01 - MASTER OF CEREMONIES (CURRENT) USE OF 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 Status: Chronic (5) Diabetes type 2, controlled Code(s): E11.9 - TYPE 2 DIABETES MELLITUS WITHOUT COMPLICATIONS Status: Chronic (6) Dyslipidemia Code(s): E78.5 - HYPERLIPIDEMIA, UNSPECIFIED Status: Chronic (7) ESRD (end stage renal disease) on dialysis Code(s): N18.6 - END STAGE RENAL DISEASE; Z99.2 - DEPENDENCE ON RENAL DIALYSIS Status: Chronic (8) H/O prosthetic aortic valve replacement Code(s): Z95.2 - PRESENCE OF PROSTHETIC HEART VALVE Status: Chronic (9) Hypertension Code(s): I10 - ESSENTIAL (PRIMARY) HYPERTENSION Status: Chronic (10) Secondary hyperparathyroidism of renal origin Code(s): N25.81 - SECONDARY HYPERPARATHYROIDISM OF RENAL ORIGIN Status: Chronic (11) 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 Review of Systems - Review of Systems ENT: negative: Ear Pain, Ear Discharge, Nose Pain, Nose Discharge, Nose Congestion, Mouth Pain, Mouth Swelling, Throat Pain, Throat Swelling, Other Respiratory: negative: Cough, Dry, Shortness of Breath, Hemoptysis, SOB with Excertion, Pleuritic Pain, Sputum, Wheezing Cardiovascular: negative: chest pain, palpitations, orthopnea, paroxysmal nocturnal dyspnea, edema, light headedness, other Gastrointestinal: negative: Nausea, Vomiting, Abdominal Pain, Diarrhea, Constipation, Melena, Hematochezia, Other Genitourinary: negative: Dysuria, Frequency, Incontinence, Hematuria, Retention , Other Musculoskeletal: negative: Neck Pain, Shoulder Pain, Arm Pain, Back Pain, Hand Pain, Leg Pain, Foot Pain, Other - Medications/Allergies Allergies/Adverse Reactions: Allergies Allergy/AdvReac Type Severity Reaction Status Date / Time No Known Allergies Allergy Verified 09/16/18 22:40 Medications: Current Medications Artificial Tears (Tears Naturale) 2 drop EA EYE PRN PRN PRN Reason: Dry Eyes Aspirin (Ecotrin) 81 mg PO DAILY [facility] Last Admin: 09/19/18 09:17 Dose: 81 mg Atorvastatin Calcium (Lipitor) 40 mg PO QAM [facility] Last Admin: 09/19/18 09:17 Dose: 40 mg Benzonatate (Tessalon) 200 mg PO Q6H PRN PRN Reason: Cough Last Admin: 09/18/18 22:18 Dose: 200 mg Bisacodyl (Dulcolax) 10 mg ID DAILYPRN PRN PRN Reason: Constipation Calcium Acetate (Phoslo) 1,334 mg PO [facility] Last Admin: 09/19/18 06:35 Dose: 1,334 mg Carvedilol (Coreg) 6.25 mg PO BID [facility] Last Admin: 09/19/18 09:17 Dose: 6.25 mg Dextrose/Water (Dextrose 50%) 25 gm SLOW IVP PRN PRN PRN Reason: Hypoglycemia Glipizide (Glucotrol) 5 mg PO BID-[facility] Last Admin: 09/19/18 09:17 Dose: 5 mg Glucagon (Glucagon) 1 mg IM PRN PRN PRN Reason: Hypoglycemia Guaifenesin (Robitussin Sf) 200 mg PO Q4H PRN PRN Reason: Cough Last Admin: 09/18/18 05:58 Dose: 200 mg Hydralazine HCl (Apresoline) 10 mg SLOW IVP Q4H PRN PRN Reason: SBP > 180 and HR < 70 Piperacillin Sod/Tazobactam (Sod 2.25 gm/ Sodium Chloride) 100 mls @ 200 mls/ hr IVPB Q8HR [facility] Last Admin: 09/19/18 05:24 Dose: 100 mls Dextrose/Water (D5w) 1,000 mls @ 0 mls/hr IV .Q0M PRN PRN Reason: Hypoglycemia Insulin Glargine 10 units/ (Miscellaneous Medication) 0.1 mls @ 0 mls/hr SC [facility] Last Admin: 09/19/18 09:18 Dose: 0.1 mls Insulin Human Lispro (Humalog) 0 units SC .MILD SLIDING SCALE PRN PRN Reason: Mild Correctional Scale Insulin Human Lispro (Humalog) 0 units SC .BEDTIME SLIDING SC PRN PRN Reason: Bedtime Correctional Scale Last Admin: 09/17/18 00:01 Dose: 4 unit Loratadine (Claritin) 10 mg PO DAILYPRN PRN PRN Reason: Sinus Symptoms Mineral Oil/White Petrolatum (Eucerin Cream) 0 gm TOP BIDPRN PRN PRN Reason: Dry Skin Miscellaneous Medication (Pharmacy To Dose) 1 each IVPB PRN PRN PRN Reason: DOSING Miscellaneous Medication (Pharmacy To Dose) 1 each PO ASDIR [facility] Montelukast Sodium (Singulair) 10 mg PO DAILY [facility] Last Admin: 09/19/18 09:18 Dose: 10 mg Ondansetron HCl (Zofran Odt) 4 mg PO Q6H PRN PRN Reason: Nausea/Vomiting Ondansetron HCl (Zofran) 4 mg IVP Q6H PRN PRN Reason: Nausea/Vomiting Saccharomyces Boulardii (Florastor) 250 mg PO DAILY [facility] Last Admin: 09/19/18 09:17 Dose: 250 mg Sacubitril/Valsartan (Entresto 24.5 Mg-25.5 Mg Tablet) 1 tab PO BID [facility] Last Admin: 09/19/18 09:17 Dose: 1 tab Senna/Docusate Sodium (Senokot S) 2 tab PO BID PRN PRN Reason: Constipation Sodium Chloride ([place] Nasal [place] 0.65%) 0 ml EA NARE QIDPRN PRN PRN Reason: Nasal Congestion Sodium Chloride (Flush - Normal Saline) 10 ml IVF Q12HR [facility] Last Admin: 09/18/18 22:05 Dose: 10 ml Sodium Chloride (Flush - Normal Saline) 10 ml IVF PRN PRN PRN Reason: Saline Flush Last Admin: 09/19/18 05:25 Dose: 10 ml Throat Lozenges (Cepastat Lozenges) 1 keena PO Q2H PRN PRN Reason: Sore Throat Warfarin Sodium (Coumadin) 6 mg PO 1700 [facility] Last Admin: 09/18/18 17:01 Dose: 6 mg
--- NOTE | 2018-09-19 13:04 | PDOC.CTH ---
Cardiology Progress Note - Subjective Patient with c/o cough and weakness. - Objective Vital Signs Temp Pulse Resp BP BP Pulse Ox 09/19/18 09:17 148/72 H 09/19/18 03:00 98.2 F 64 19 131/63 95 Weight 198 lb 12.8 oz 09/18/18 09/19/18 09/20/18 06:59 06:59 06:59 Intake Total 1490 1090 Output Total 3500 Balance 1490 -2410 - Physical Examination General/Neuro: alert & oriented x3 Neck: no JVD present Lungs: CTA Heart: RRR Abdomen: NT/ND - Telemetry Telemetry Rhythm: SR; NSVT - Labs Result Diagrams: 09/17/18 07:44 09/17/18 07:44 Troponin/CKMB CK-MB (CK-2) 2.7 ng/mL (0-6.6) 09/16/18 19:36 Troponin I 0.166 ng/mL (< 0.028) H 09/17/18 01:48 - Assessment/Plan 1. NSVT 2. 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 s/p mechanical AVR 4. CAD 5. ESRD 6. Hx CVA 7. Bronchitis LifeVest placed. Will discuss with Dr. Caruso. Patient last cath 2015 with 30 -40% LCx lesion. Abnormal MPI 04/2018 showing lateral wall ischemia. Now with decreased EF and NSVT. May need repeat cath prior to discharge, but with acute bronchitis and coughing more complicated. No changes for now.
[2018-09-19] MEDS: Warfarin Sodium 3 MG TAB PO SCH (19:22)
[2018-09-20] MEDS: Piperacillin/Tazobactam 2.25 GM in Sodium Chloride 0.9% 100 ML IVPB SCH (05:43)
[2018-09-20 05:53] LABS: INR-International Normal Ratio 3.4; Prothrombin Time 34.7 SEC (12.0-14.7)
[2018-09-20 08:01] LABS: #Eosinphils 0.3 thou/uL (0.0-0.7); #Neutrophils 5.1 thou/uL (1.40-6.50); %Basophils 0.1 % (0.0-1.0); %Eosinophils 4.4 % (0.0-10.0); %Lymphocytes 13.9 % (21.0-51.0); %Neutrophils 68.7 % (42.0-75.0); Hemoglobin 11.9 g/dL (14.0-18.0); Mean Corpuscular HGB CONC 31.9 g/dL (32.0-36.0); Mean Corpuscular Hemoglobin 29.9 pg (27.0-31.0); Mean Corpuscular Volume 93.6 fL (78.0-98.0); Mean Platelet Volume 9.8 fL (7.4-10.4); Platelet Count 130 thou/uL (130-400); RBC Distribution Width 13.9 % (11.5-14.5); Red Blood Cell (RBC) Count 3.98 mill/uL (4.70-6.10); White Blood Cell (WBC) Count 7.5 thou/uL (4.8-10.8)
[2018-09-20 08:12] LABS: ALT (SGPT) 24 U/L (8-55); AST (SGOT) 20 U/L (5-34); Albumin 3.2 g/dL (3.4-4.8); Alkaline Phosphatase 65 U/L (40-150); Anion Gap 17 mmol/L (10-20); BUN (Urea Nitrogen) 40 mg/dL (8.4-25.7); Bilirubin, Total 0.8 mg/dL (0.2-1.2); Calc. Creatinine Clearance 13 mL/min (70-130); Carbon Dioxide 25 mmol/L (23-31); Chloride 98 mmol/L (98-107); Estimated GFR-MDRD 10; Globulin 2.4 g/dL (2.4-3.5); Glucose 134 mg/dL (83-110); Potassium 4.4 mmol/L (3.5-5.1); Protein, Total 5.6 g/dL (5.8-8.1); Sodium 136 mmol/L (136-145)
[2018-09-20] MEDS: Calcium Acetate 667 MG CAP PO SCH ×3 (08:15→17:39)
--- NOTE | 2018-09-20 10:44 | PDOC.PN ---
- Subjective Encounter Start Date: 09/20/18 Encounter Start Time: 08:00 Patient seen and examined. No new complaints. No overnight events - Objective Resuscitation Status - Order Detail: 09/18/18 11:31 Resuscitation Status Routine Resuscitation Status: FULL: Full Resuscitation MAR Reviewed: Yes Vital Signs & Weight: Vital Signs (12 hours) Temp Pulse Resp BP BP Pulse Ox 09/20/18 08:00 97.4 F L 67 20 157/69 H 96 09/20/18 04:00 97.1 F L 63 17 146/67 H 94 L Weight Weight 199 lb I&O: 09/19/18 09/20/18 09/21/18 06:59 06:59 06:59 Intake Total 1090 Output Total 3500 Balance -2410 Result Diagrams: 09/20/18 05:18 09/20/18 05:18 Additional Labs: Accuchecks 09/20/18 09/19/18 09/19/18 05:57 20:19 16:59 POC Glucose 139 H 172 H 203 H 09/19/18 11:25 POC Glucose 278 H EKG Reviewed by me: Yes (lbbb, nsvt) Phys Exam - Physical Examination Constitutional: NAD HEENT: PERRLA, moist MMs, sclera anicteric Neck: no JVD, supple Respiratory: no wheezing, no rales, no rhonchi Cardiovascular: no significant murmur, irregular Gastrointestinal: soft, non-tender, no distention, positive bowel sounds Musculoskeletal: no edema, pulses present Neurological: non-focal, normal sensation Psychiatric: normal affect, A&O x 3 Skin: no rash, normal turgor Dx/Plan (1) Acute bronchitis Code(s): J20.9 - ACUTE BRONCHITIS, UNSPECIFIED Status: Acute (2) Acute encephalopathy Code(s): G93.40 - ENCEPHALOPATHY, UNSPECIFIED Status: Resolved Comment: due to metabolic etiology (3) Demand ischemia Code(s): I24.8 - OTHER FORMS OF ACUTE ISCHEMIC HEART DISEASE Status: Acute (4) Chronic anticoagulation Code(s): Z79.01 - GROUP HOME (CURRENT) USE OF 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 Status: Chronic (5) Diabetes type 2, controlled Code(s): E11.9 - TYPE 2 DIABETES MELLITUS WITHOUT COMPLICATIONS Status: Chronic (6) Dyslipidemia Code(s): E78.5 - HYPERLIPIDEMIA, UNSPECIFIED Status: Chronic (7) ESRD (end stage renal disease) on dialysis Code(s): N18.6 - END STAGE RENAL DISEASE; Z99.2 - DEPENDENCE ON RENAL DIALYSIS Status: Chronic (8) H/O prosthetic aortic valve replacement Code(s): Z95.2 - PRESENCE OF PROSTHETIC HEART VALVE Status: Chronic (9) Hypertension Code(s): I10 - ESSENTIAL (PRIMARY) HYPERTENSION Status: Chronic (10) Secondary hyperparathyroidism of renal origin Code(s): N25.81 - SECONDARY HYPERPARATHYROIDISM OF RENAL ORIGIN Status: Chronic (11) Acute on chronic systolic ACC/AHA stage C congestive heart failure Code(s): I50.23 - ACUTE ON CHRONIC SYSTOLIC (CONGESTIVE) HEART FAILURE Status : Acute (12) Pulmonary hypertension Code(s): I27.20 - PULMONARY HYPERTENSION, UNSPECIFIED Status: Acute - Plan cont current plan of care, PT/OT, social science research assistant * DC zosyn * may need cardiac cath as per cardiology * medication reviewed as below * symptomatic treatment * will need rehab * pt will need more life vest teaching. Review of Systems - Review of Systems ENT: negative: Ear Pain, Ear Discharge, Nose Pain, Nose Discharge, Nose Congestion, Mouth Pain, Mouth Swelling, Throat Pain, Throat Swelling, Other Respiratory: negative: Cough, Dry, Shortness of Breath, Hemoptysis, SOB with Excertion, Pleuritic Pain, Sputum, Wheezing Cardiovascular: negative: chest pain, palpitations, orthopnea, paroxysmal nocturnal dyspnea, edema, light headedness, other Gastrointestinal: negative: Nausea, Vomiting, Abdominal Pain, Diarrhea, Constipation, Melena, Hematochezia, Other Genitourinary: negative: Dysuria, Frequency, Incontinence, Hematuria, Retention , Other Musculoskeletal: negative: Neck Pain, Shoulder Pain, Arm Pain, Back Pain, Hand Pain, Leg Pain, Foot Pain, Other Skin: negative: Rash, Lesions, Darin, Bruising, Other - Medications/Allergies Allergies/Adverse Reactions: Allergies Allergy/AdvReac Type Severity Reaction Status Date / Time No Known Allergies Allergy Verified 09/16/18 22:40 Medications: Current Medications Artificial Tears (Tears Naturale) 2 drop EA EYE PRN PRN PRN Reason: Dry Eyes Aspirin (Ecotrin) 81 mg PO DAILY [facility] Last Admin: 09/19/18 09:17 Dose: 81 mg Atorvastatin Calcium (Lipitor) 40 mg PO QAM [facility] Last Admin: 09/19/18 09:17 Dose: 40 mg Benzonatate (Tessalon) 200 mg PO Q6H PRN PRN Reason: Cough Last Admin: 09/18/18 22:18 Dose: 200 mg Bisacodyl (Dulcolax) 10 mg ID DAILYPRN PRN PRN Reason: Constipation Calcium Acetate (Phoslo) 1,334 mg PO AC [facility] Last Admin: 09/19/18 19:21 Dose: 1,334 mg Carvedilol (Coreg) 6.25 mg PO BID [facility] Last Admin: 09/19/18 21:33 Dose: 6.25 mg Dextrose/Water (Dextrose 50%) 25 gm SLOW IVP PRN PRN PRN Reason: Hypoglycemia Glipizide (Glucotrol) 5 mg PO BID-[facility] Last Admin: 09/19/18 19:21 Dose: 5 mg Glucagon (Glucagon) 1 mg IM PRN PRN PRN Reason: Hypoglycemia Guaifenesin (Robitussin Sf) 200 mg PO Q4H PRN PRN Reason: Cough Last Admin: 09/18/18 05:58 Dose: 200 mg Hydralazine HCl (Apresoline) 10 mg SLOW IVP Q4H PRN PRN Reason: SBP > 180 and HR < 70 Dextrose/Water (D5w) 1,000 mls @ 0 mls/hr IV .Q0M PRN PRN Reason: Hypoglycemia Insulin Glargine 10 units/ (Miscellaneous Medication) 0.1 mls @ 0 mls/hr SC [facility] Last Admin: 09/19/18 09:18 Dose: 0.1 mls Insulin Human Lispro (Humalog) 0 units SC .MILD SLIDING SCALE PRN PRN Reason: Mild Correctional Scale Insulin Human Lispro (Humalog) 0 units SC .BEDTIME SLIDING SC PRN PRN Reason: Bedtime Correctional Scale Last Admin: 09/17/18 00:01 Dose: 4 unit Loratadine (Claritin) 10 mg PO DAILYPRN PRN PRN Reason: Sinus Symptoms Mineral Oil/White Petrolatum (Eucerin Cream) 0 gm TOP BIDPRN PRN PRN Reason: Dry Skin Miscellaneous Medication (Pharmacy To Dose) 1 each IVPB PRN PRN PRN Reason: DOSING Miscellaneous Medication (Pharmacy To Dose) 1 each PO ASDIR [facility] Montelukast Sodium (Singulair) 10 mg PO DAILY [facility] Last Admin: 09/19/18 09:18 Dose: 10 mg Ondansetron HCl (Zofran Odt) 4 mg PO Q6H PRN PRN Reason: Nausea/Vomiting Ondansetron HCl (Zofran) 4 mg IVP Q6H PRN PRN Reason: Nausea/Vomiting Saccharomyces Boulardii (Florastor) 250 mg PO DAILY [facility] Last Admin: 09/19/18 09:17 Dose: 250 mg Sacubitril/Valsartan (Entresto 24.5 Mg-25.5 Mg Tablet) 1 tab PO BID [facility] Last Admin: 09/19/18 21:34 Dose: 1 tab Senna/Docusate Sodium (Senokot S) 2 tab PO BID PRN PRN Reason: Constipation Sodium Chloride ([place] Nasal [place] 0.65%) 0 ml EA NARE QIDPRN PRN PRN Reason: Nasal Congestion Sodium Chloride (Flush - Normal Saline) 10 ml IVF Q12HR [facility] Last Admin: 09/19/18 21:36 Dose: 10 ml Sodium Chloride (Flush - Normal Saline) 10 ml IVF PRN PRN PRN Reason: Saline Flush Last Admin: 09/19/18 05:25 Dose: 10 ml Throat Lozenges (Cepastat Lozenges) 1 keena PO Q2H PRN PRN Reason: Sore Throat Warfarin Sodium (Coumadin) 6 mg PO 1700 [facility] Last Admin: 09/19/18 19:22 Dose: 6 mg
[2018-09-20] MEDS: Montelukast Sodium 10 mg Tablet PO SCH (11:37)
[2018-09-20] MEDS: Carvedilol 6.25 MG TAB PO SCH ×2 (11:37→21:16)
[2018-09-20] MEDS: Sacubitril 24.5 MG/Valsartan 25.5 MG TABLET PO SCH ×2 (11:37→21:16)
[2018-09-20] MEDS: Atorvastatin Calcium 40 MG TAB PO SCH (11:37)
[2018-09-20] MEDS: Insulin Glargine 10 UNITS in Pre-Filled Syringe 1 EACH SC SCH (11:38)
[2018-09-20] MEDS: Saccharomyces boulardii 250 MG CAP PO SCH (11:38)
[2018-09-20] MEDS: glipiZIDE 5 MG TAB PO SCH ×2 (11:38→17:38)
[2018-09-20] MEDS: Aspirin 81 mg Enteric Coated Tablet PO SCH (11:38)
--- NOTE | 2018-09-20 12:09 | PDOC.CTH ---
Cardiology Progress Note - Subjective Patient seen earlier this morning. Chart reviewed. Per nurse, patient and confused about LifeVest and how to use/manage despite training. Nurse has recalled Zoll. No further VT on tele. Patient still with c/o cough. - Objective Vital Signs Temp Pulse Resp BP BP BP Pulse Ox 09/20/18 11:37 131/60 09/20/18 08:00 97.4 F L 67 20 157/69 H 96 09/20/18 04:00 97.1 F L 63 17 146/67 H 94 L Weight 199 lb 09/19/18 09/20/18 09/21/18 06:59 06:59 06:59 Intake Total 1090 Output Total 3500 Balance -2410 - Physical Examination General/Neuro: alert & oriented x3 Neck: no JVD present Lungs: CTA Heart: RRR Abdomen: NT/ND - Telemetry Telemetry Rhythm: SR - Labs Result Diagrams: 09/20/18 05:18 09/20/18 05:18 Troponin/CKMB CK-MB (CK-2) 2.7 ng/mL (0-6.6) 09/16/18 19:36 Troponin I 0.166 ng/mL (< 0.028) H 09/17/18 01:48 - Assessment/Plan 1. NSVT 2. 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 s/p mechanical AVR 4. CAD 5. ESRD 6. Hx CVA 7. Bronchitis Stable from cardiac standpoint. Await Zoll retraining. Continue bronchitis treatment. Family is to arrive later today to discuss further.
[2018-09-20] MEDS: Warfarin Sodium 3 MG TAB PO SCH (17:38)
[2018-09-21 05:30] LABS: #Eosinphils 0.2 thou/uL (0.0-0.7); #Neutrophils 7.1 thou/uL (1.40-6.50); %Basophils 0.1 % (0.0-1.0); %Eosinophils 1.9 % (0.0-10.0); %Lymphocytes 10.9 % (21.0-51.0); %Monocytes 10.7 % (0.0-10.0); %Neutrophils 76.4 % (42.0-75.0); Hemoglobin 13.3 g/dL (14.0-18.0); Mean Corpuscular HGB CONC 32.5 g/dL (32.0-36.0); Mean Corpuscular Hemoglobin 29.9 pg (27.0-31.0); Mean Platelet Volume 9.7 fL (7.4-10.4); Platelet Count 139 thou/uL (130-400); RBC Distribution Width 13.9 % (11.5-14.5); Red Blood Cell (RBC) Count 4.44 mill/uL (4.70-6.10); White Blood Cell (WBC) Count 9.3 thou/uL (4.8-10.8)
[2018-09-21 05:31] LABS: Prothrombin Time 39.7 SEC (12.0-14.7)
[2018-09-21 05:44] LABS: INR-International Normal Ratio 4.1
[2018-09-21 05:50] LABS: ALT (SGPT) 50 U/L (8-55); AST (SGOT) 54 U/L (5-34); Albumin 3.5 g/dL (3.4-4.8); Alkaline Phosphatase 95 U/L (40-150); Anion Gap 20 mmol/L (10-20); BUN (Urea Nitrogen) 59 mg/dL (8.4-25.7); Bilirubin, Total 0.9 mg/dL (0.2-1.2); Calc. Creatinine Clearance 11 mL/min (70-130); Calcium 9.8 mg/dL (7.8-10.44); Carbon Dioxide 23 mmol/L (23-31); Chloride 96 mmol/L (98-107); Estimated GFR-MDRD 8; Globulin 2.7 g/dL (2.4-3.5); Glucose 188 mg/dL (83-110); Potassium 5.2 mmol/L (3.5-5.1); Protein, Total 6.2 g/dL (5.8-8.1); Sodium 134 mmol/L (136-145)
[2018-09-21] MEDS: Calcium Acetate 667 MG CAP PO SCH ×3 (07:45→17:48)
[2018-09-21] MEDS: glipiZIDE 5 MG TAB PO SCH ×2 (08:45→17:47)
[2018-09-21] MEDS: Carvedilol 6.25 MG TAB PO SCH ×2 (09:00→20:04)
--- NOTE | 2018-09-21 11:29 | PDOC.PN ---
- Subjective Encounter Start Date: 09/21/18 Encounter Start Time: 07:50 pt is baseline slightly confused, no overnight event, seen in HD room, in room - Objective Resuscitation Status - Order Detail: 09/18/18 11:31 Resuscitation Status Routine Resuscitation Status: FULL: Full Resuscitation MAR Reviewed: Yes Vital Signs & Weight: Vital Signs (12 hours) Temp Pulse Resp BP BP Pulse Ox 09/21/18 07:55 97.7 F 64 18 137/65 94 L 09/21/18 04:00 97.7 F 63 20 170/103 H 93 L Weight Weight 198 lb 10 oz I&O: 09/20/18 09/21/18 09/22/18 06:59 06:59 06:59 Intake Total 120 Balance 120 Result Diagrams: 09/21/18 04:50 09/21/18 04:50 Additional Labs: Accuchecks 09/21/18 09/20/18 09/20/18 05:49 20:17 16:55 POC Glucose 170 H 218 H 183 H 09/20/18 11:16 POC Glucose 182 H EKG Reviewed by me: Yes Phys Exam - Physical Examination Constitutional: NAD HEENT: PERRLA, moist MMs, sclera anicteric Neck: no JVD, supple Respiratory: no wheezing, no rales, no rhonchi Cardiovascular: RRR, no rub SM+ Gastrointestinal: soft, non-tender, no distention, positive bowel sounds Musculoskeletal: no edema, pulses present Neurological: non-focal, normal sensation Lymphatic: no nodes Psychiatric: normal affect Skin: no rash, normal turgor Dx/Plan (1) Acute bronchitis Code(s): J20.9 - ACUTE BRONCHITIS, UNSPECIFIED Status: Acute (2) Acute encephalopathy Code(s): G93.40 - ENCEPHALOPATHY, UNSPECIFIED Status: Resolved Comment: due to metabolic etiology (3) Demand ischemia Code(s): I24.8 - OTHER FORMS OF ACUTE ISCHEMIC HEART DISEASE Status: Acute (4) Chronic anticoagulation Code(s): Z79.01 - [place] (CURRENT) USE OF 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 Status: Chronic (5) Diabetes type 2, controlled Code(s): E11.9 - TYPE 2 DIABETES MELLITUS WITHOUT COMPLICATIONS Status: Chronic (6) Dyslipidemia Code(s): E78.5 - HYPERLIPIDEMIA, UNSPECIFIED Status: Chronic (7) ESRD (end stage renal disease) on dialysis Code(s): N18.6 - END STAGE RENAL DISEASE; Z99.2 - DEPENDENCE ON RENAL DIALYSIS Status: Chronic (8) H/O prosthetic aortic valve replacement Code(s): Z95.2 - PRESENCE OF PROSTHETIC HEART VALVE Status: Chronic (9) Hypertension Code(s): I10 - ESSENTIAL (PRIMARY) HYPERTENSION Status: Chronic (10) Secondary hyperparathyroidism of renal origin Code(s): N25.81 - SECONDARY HYPERPARATHYROIDISM OF RENAL ORIGIN Status: Chronic (11) Acute on chronic systolic ACC/AHA stage C congestive heart failure Code(s): I50.23 - ACUTE ON CHRONIC SYSTOLIC (CONGESTIVE) HEART FAILURE Status : Acute (12) Pulmonary hypertension Code(s): I27.20 - PULMONARY HYPERTENSION, UNSPECIFIED Status: Acute - Plan cont current plan of care, plan discussed w/ family, PT/OT, social worker health services * wants to send him to rehab on discharge * medication reviewed as below * symptomatic treatment * HD as per nephrology * more teaching about lifevest if possible * shoe parts caser for placement * cardiology to decide if any procedure needed or not. Review of Systems - Review of Systems ENT: negative: Ear Pain, Ear Discharge, Nose Pain, Nose Discharge, Nose Congestion, Mouth Pain, Mouth Swelling, Throat Pain, Throat Swelling, Other Respiratory: negative: Cough, Dry, Shortness of Breath, Hemoptysis, SOB with Excertion, Pleuritic Pain, Sputum, Wheezing Cardiovascular: negative: chest pain, palpitations, orthopnea, paroxysmal nocturnal dyspnea, edema, light headedness, other Gastrointestinal: negative: Nausea, Vomiting, Abdominal Pain, Diarrhea, Constipation, Melena, Hematochezia, Other Genitourinary: negative: Dysuria, Frequency, Incontinence, Hematuria, Retention , Other Musculoskeletal: negative: Neck Pain, Shoulder Pain, Arm Pain, Back Pain, Hand Pain, Leg Pain, Foot Pain, Other - Medications/Allergies Allergies/Adverse Reactions: Allergies Allergy/AdvReac Type Severity Reaction Status Date / Time No Known Allergies Allergy Verified 09/16/18 22:40 Medications: Current Medications Artificial Tears (Tears Naturale) 2 drop EA EYE PRN PRN PRN Reason: Dry Eyes Aspirin (Ecotrin) 81 mg PO DAILY [facility] Last Admin: 09/20/18 11:38 Dose: 81 mg Atorvastatin Calcium (Lipitor) 40 mg PO QAM [facility] Last Admin: 09/20/18 11:37 Dose: 40 mg Benzonatate (Tessalon) 200 mg PO Q6H PRN PRN Reason: Cough Last Admin: 09/18/18 22:18 Dose: 200 mg Bisacodyl (Dulcolax) 10 mg [place] DAILYPRN PRN PRN Reason: Constipation Calcium Acetate (Phoslo) 1,334 mg PO AC [facility] Last Admin: 09/21/18 07:45 Dose: Not Given Carvedilol (Coreg) 6.25 mg PO BID [facility] Last Admin: 09/20/18 21:16 Dose: 6.25 mg Dextrose/Water (Dextrose 50%) 25 gm SLOW IVP PRN PRN PRN Reason: Hypoglycemia Glipizide (Glucotrol) 5 mg PO BID-[facility] Last Admin: 09/21/18 08:45 Dose: Not Given Glucagon (Glucagon) 1 mg IM PRN PRN PRN Reason: Hypoglycemia Guaifenesin (Robitussin Sf) 200 mg PO Q4H PRN PRN Reason: Cough Last Admin: 09/18/18 05:58 Dose: 200 mg Hydralazine HCl (Apresoline) 10 mg SLOW IVP Q4H PRN PRN Reason: SBP > 180 and HR < 70 Dextrose/Water (D5w) 1,000 mls @ 0 mls/hr IV .Q0M PRN PRN Reason: Hypoglycemia Insulin Glargine 10 units/ (Miscellaneous Medication) 0.1 mls @ 0 mls/[facility] Last Admin: 09/20/18 11:38 Dose: 0.1 mls Insulin Human Lispro (Humalog) 0 units SC .MILD SLIDING SCALE PRN PRN Reason: Mild Correctional Scale Insulin Human Lispro (Humalog) 0 units SC .BEDTIME SLIDING SC PRN PRN Reason: Bedtime Correctional Scale Last Admin: 09/17/18 00:01 Dose: 4 unit Loratadine (Claritin) 10 mg PO DAILYPRN PRN PRN Reason: Sinus Symptoms Mineral Oil/White Petrolatum (Eucerin Cream) 0 gm TOP BIDPRN PRN PRN Reason: Dry Skin Miscellaneous Medication (Pharmacy To Dose) 1 each IVPB PRN PRN PRN Reason: DOSING Miscellaneous Medication (Pharmacy To Dose) 1 each PO ASDIR [facility] Montelukast Sodium (Singulair) 10 mg PO DAILY [facility] Last Admin: 09/20/18 11:37 Dose: 10 mg Ondansetron HCl (Zofran Odt) 4 mg PO Q6H PRN PRN Reason: Nausea/Vomiting Ondansetron HCl (Zofran) 4 mg IVP Q6H PRN PRN Reason: Nausea/Vomiting Saccharomyces Boulardii (Florastor) 250 mg PO DAILY [facility] Last Admin: 09/20/18 11:38 Dose: 250 mg Sacubitril/Valsartan (Entresto 49 Mg-51 Mg Tablet) 1 tab PO BID [facility] Senna/Docusate Sodium (Senokot S) 2 tab PO BID PRN PRN Reason: Constipation Sodium Chloride ([place] Nasal [place] 0.65%) 0 ml EA NARE QIDPRN PRN PRN Reason: Nasal Congestion Sodium Chloride (Flush - Normal Saline) 10 ml IVF Q12HR [facility] Last Admin: 09/20/18 21:17 Dose: 10 ml Sodium Chloride (Flush - Normal Saline) 10 ml IVF PRN PRN PRN Reason: Saline Flush Last Admin: 09/19/18 05:25 Dose: 10 ml Throat Lozenges (Cepastat Lozenges) 1 keena PO Q2H PRN PRN Reason: Sore Throat
[2018-09-21] MEDS: Saccharomyces boulardii 250 MG CAP PO SCH (12:46)
[2018-09-21] MEDS: Atorvastatin Calcium 40 MG TAB PO SCH (12:46)
[2018-09-21] MEDS: Sacubitril 49 MG/Valsartan 51 MG TABLET PO SCH ×2 (12:46→20:03)
[2018-09-21] MEDS: Montelukast Sodium 10 mg Tablet PO SCH (12:47)
[2018-09-21] MEDS: Aspirin 81 mg Enteric Coated Tablet PO SCH (12:47)
[2018-09-21] MEDS: Insulin Glargine 10 UNITS in Pre-Filled Syringe 1 EACH SC SCH (12:49)
[2018-09-21] MEDS ORDERED: Heparin 10,000 UNITS/ 10 ML VIAL ONE (15:00)
[2018-09-22 05:55] LABS: Prothrombin Time 40.7 SEC (12.0-14.7)
[2018-09-22 06:01] LABS: INR-International Normal Ratio 4.2
[2018-09-22 08:22] LABS: Anion Gap 21 mmol/L (10-20); BUN (Urea Nitrogen) 33 mg/dL (8.4-25.7); Calc. Creatinine Clearance 13 mL/min (70-130); Calcium 10.3 mg/dL (7.8-10.44); Carbon Dioxide 24 mmol/L (23-31); Chloride 98 mmol/L (98-107); Estimated GFR-MDRD 11; Glucose 98 mg/dL (83-110); Sodium 138 mmol/L (136-145)
[2018-09-22] MEDS: Insulin Glargine 10 UNITS in Pre-Filled Syringe 1 EACH SC SCH (09:59)
[2018-09-22] MEDS: Calcium Acetate 667 MG CAP PO SCH ×3 (10:00→17:23)
[2018-09-22] MEDS: Sacubitril 49 MG/Valsartan 51 MG TABLET PO SCH ×2 (10:01→21:04)
[2018-09-22] MEDS: Carvedilol 6.25 MG TAB PO SCH ×2 (10:02→21:04)
[2018-09-22] MEDS: Aspirin 81 mg Enteric Coated Tablet PO SCH (10:02)
[2018-09-22] MEDS: Atorvastatin Calcium 40 MG TAB PO SCH (10:02)
[2018-09-22] MEDS: glipiZIDE 5 MG TAB PO SCH ×2 (10:02→17:23)
[2018-09-22] MEDS: Saccharomyces boulardii 250 MG CAP PO SCH (10:03)
[2018-09-22] MEDS: Montelukast Sodium 10 mg Tablet PO SCH (10:03)
--- NOTE | 2018-09-22 10:49 | PDOC.PN ---
- Subjective Encounter Start Date: 09/22/18 Encounter Start Time: 07:30 Patient seen and examined. No new complaints. No overnight events - Objective Resuscitation Status - Order Detail: 09/18/18 11:31 Resuscitation Status Routine Resuscitation Status: FULL: Full Resuscitation MAR Reviewed: Yes Vital Signs & Weight: Vital Signs (12 hours) Temp Pulse Resp BP BP BP Pulse Ox 09/22/18 10:02 144/85 H 09/22/18 08:00 98.4 F 54 L 16 144/85 H 97 09/22/18 04:00 97.2 F L 60 12 172/72 H 93 L Weight Weight 188 lb 1 oz I&O: 09/21/18 09/22/18 09/23/18 06:59 06:59 06:59 Intake Total 120 120 Balance 120 120 Result Diagrams: 09/21/18 04:50 09/22/18 05:37 Additional Labs: Accuchecks 09/22/18 09/21/18 09/21/18 05:38 20:23 17:10 POC Glucose 100 124 H 147 H EKG Reviewed by me: Yes Phys Exam - Physical Examination Constitutional: NAD HEENT: PERRLA, moist MMs, sclera anicteric Neck: no JVD, supple Respiratory: no wheezing, no rales, no rhonchi Cardiovascular: RRR, no rub SM+ prosthetic sound+ Gastrointestinal: soft, non-tender, no distention, positive bowel sounds Musculoskeletal: no edema, pulses present Neurological: non-focal, normal sensation Lymphatic: no nodes Psychiatric: normal affect, A&O x 3 Skin: no rash, normal turgor Dx/Plan (1) Acute bronchitis Code(s): J20.9 - ACUTE BRONCHITIS, UNSPECIFIED Status: Acute (2) Acute encephalopathy Code(s): G93.40 - ENCEPHALOPATHY, UNSPECIFIED Status: Resolved Comment: due to metabolic etiology (3) Demand ischemia Code(s): I24.8 - OTHER FORMS OF ACUTE ISCHEMIC HEART DISEASE Status: Acute (4) Chronic anticoagulation Code(s): Z79.01 - 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 OF 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 Status: Chronic (5) Diabetes type 2, controlled Code(s): E11.9 - TYPE 2 DIABETES MELLITUS WITHOUT COMPLICATIONS Status: Chronic (6) Dyslipidemia Code(s): E78.5 - HYPERLIPIDEMIA, UNSPECIFIED Status: Chronic (7) ESRD (end stage renal disease) on dialysis Code(s): N18.6 - END STAGE RENAL DISEASE; Z99.2 - DEPENDENCE ON RENAL DIALYSIS Status: Chronic (8) H/O prosthetic aortic valve replacement Code(s): Z95.2 - PRESENCE OF PROSTHETIC HEART VALVE Status: Chronic (9) Hypertension Code(s): I10 - ESSENTIAL (PRIMARY) HYPERTENSION Status: Chronic (10) Secondary hyperparathyroidism of renal origin Code(s): N25.81 - SECONDARY HYPERPARATHYROIDISM OF RENAL ORIGIN Status: Chronic (11) Acute on chronic systolic ACC/AHA stage C congestive heart failure Code(s): I50.23 - ACUTE ON CHRONIC SYSTOLIC (CONGESTIVE) HEART FAILURE Status : Acute (12) Pulmonary hypertension Code(s): I27.20 - PULMONARY HYPERTENSION, UNSPECIFIED Status: Acute - Plan cont current plan of care, PT/OT, 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 * hold warfarin for high INR Review of Systems - Review of Systems ENT: negative: Ear Pain, Ear Discharge, Nose Pain, Nose Discharge, Nose Congestion, Mouth Pain, Mouth Swelling, Throat Pain, Throat Swelling, Other Respiratory: negative: Cough, Dry, Shortness of Breath, Hemoptysis, SOB with Excertion, Pleuritic Pain, Sputum, Wheezing Cardiovascular: negative: chest pain, palpitations, orthopnea, paroxysmal nocturnal dyspnea, edema, light headedness, other Gastrointestinal: negative: Nausea, Vomiting, Abdominal Pain, Diarrhea, Constipation, Melena, Hematochezia, Other Genitourinary: negative: Dysuria, Frequency, Incontinence, Hematuria, Retention , Other Musculoskeletal: negative: Neck Pain, Shoulder Pain, Arm Pain, Back Pain, Hand Pain, Leg Pain, Foot Pain, Other - Medications/Allergies Allergies/Adverse Reactions: Allergies Allergy/AdvReac Type Severity Reaction Status Date / Time No Known Allergies Allergy Verified 09/16/18 22:40 Medications: Current Medications Artificial Tears (Tears Naturale) 2 drop EA EYE PRN PRN PRN Reason: Dry Eyes Aspirin (Ecotrin) 81 mg PO DAILY [facility] Last Admin: 09/22/18 10:02 Dose: 81 mg Atorvastatin Calcium (Lipitor) 40 mg PO QAM [facility] Last Admin: 09/22/18 10:02 Dose: 40 mg Benzonatate (Tessalon) 200 mg PO Q6H PRN PRN Reason: Cough Last Admin: 09/18/18 22:18 Dose: 200 mg Bisacodyl (Dulcolax) 10 mg [place] DAILYPRN PRN PRN Reason: Constipation Calcium Acetate (Phoslo) 1,334 mg PO AC [facility] Last Admin: 09/22/18 10:00 Dose: 1,334 mg Carvedilol (Coreg) 6.25 mg PO BID [facility] Last Admin: 09/22/18 10:02 Dose: 6.25 mg Dextrose/Water (Dextrose 50%) 25 gm SLOW IVP PRN PRN PRN Reason: Hypoglycemia Glipizide (Glucotrol) 5 mg PO BID-[facility] Last Admin: 09/22/18 10:02 Dose: 5 mg Glucagon (Glucagon) 1 mg IM PRN PRN PRN Reason: Hypoglycemia Guaifenesin (Robitussin Sf) 200 mg PO Q4H PRN PRN Reason: Cough Last Admin: 09/18/18 05:58 Dose: 200 mg Hydralazine HCl (Apresoline) 10 mg SLOW IVP Q4H PRN PRN Reason: SBP > 180 and HR < 70 Dextrose/Water (D5w) 1,000 mls @ 0 mls/hr IV .Q0M PRN PRN Reason: Hypoglycemia Insulin Glargine 10 units/ (Miscellaneous Medication) 0.1 mls @ 0 mls/hr SC [facility] Last Admin: 09/22/18 09:59 Dose: 0.1 mls Insulin Human Lispro (Humalog) 0 units SC .MILD SLIDING SCALE PRN PRN Reason: Mild Correctional Scale Insulin Human Lispro (Humalog) 0 units SC .BEDTIME SLIDING SC PRN PRN Reason: Bedtime Correctional Scale Last Admin: 09/17/18 00:01 Dose: 4 unit Loratadine (Claritin) 10 mg PO DAILYPRN PRN PRN Reason: Sinus Symptoms Mineral Oil/White Petrolatum (Eucerin Cream) 0 gm TOP BIDPRN PRN PRN Reason: Dry Skin Miscellaneous Medication (Pharmacy To Dose) 1 each PO ASDIR [facility] Montelukast Sodium (Singulair) 10 mg PO DAILY [facility] Last Admin: 09/22/18 10:03 Dose: 10 mg Ondansetron HCl (Zofran Odt) 4 mg PO Q6H PRN PRN Reason: Nausea/Vomiting Ondansetron HCl (Zofran) 4 mg IVP Q6H PRN PRN Reason: Nausea/Vomiting Saccharomyces Boulardii (Florastor) 250 mg PO DAILY [facility] Last Admin: 09/22/18 10:03 Dose: 250 mg Sacubitril/Valsartan (Entresto 49 Mg-51 Mg Tablet) 1 tab PO BID [facility] Last Admin: 09/22/18 10:01 Dose: 1 tab Senna/Docusate Sodium (Senokot S) 2 tab PO BID PRN PRN Reason: Constipation Sodium Chloride ([place] Nasal [place] 0.65%) 0 ml EA NARE QIDPRN PRN PRN Reason: Nasal Congestion Sodium Chloride (Flush - Normal Saline) 10 ml IVF Q12HR [facility] Last Admin: 09/22/18 10:04 Dose: 10 ml Sodium Chloride (Flush - Normal Saline) 10 ml IVF PRN PRN PRN Reason: Saline Flush Last Admin: 09/19/18 05:25 Dose: 10 ml Throat Lozenges (Cepastat Lozenges) 1 keena PO Q2H PRN PRN Reason: Sore Throat
[2018-09-23 05:43] LABS: INR-International Normal Ratio 3.9; Prothrombin Time 37.9 SEC (12.0-14.7)
[2018-09-23 06:00] LABS: Anion Gap 16 mmol/L (10-20); BUN (Urea Nitrogen) 40 mg/dL (8.4-25.7); Calc. Creatinine Clearance 11 mL/min (70-130); Calcium 9.8 mg/dL (7.8-10.44); Carbon Dioxide 25 mmol/L (23-31); Chloride 98 mmol/L (98-107); Estimated GFR-MDRD 9; Glucose 60 mg/dL (83-110); Potassium 3.8 mmol/L (3.5-5.1); Sodium 135 mmol/L (136-145)
[2018-09-23] MEDS ORDERED: Amiodarone 200 MG TAB PO SCH (09:00)
[2018-09-23] MEDS ORDERED: Heparin 10,000 UNITS/ 10 ML VIAL ONE (09:00)
[2018-09-23] MEDS: Insulin Glargine 10 UNITS in Pre-Filled Syringe 1 EACH SC SCH (09:10)
[2018-09-23] MEDS: Calcium Acetate 667 MG CAP PO SCH ×2 (10:06→13:09)
--- NOTE | 2018-09-23 10:36 | PDOC.PN ---
- Subjective Encounter Start Date: 09/23/18 Encounter Start Time: 07:40 had NSVT on monitor - Objective Resuscitation Status - Order Detail: 09/18/18 11:31 Resuscitation Status Routine Resuscitation Status: FULL: Full Resuscitation MAR Reviewed: Yes Vital Signs & Weight: Vital Signs (12 hours) Temp Pulse Resp BP Pulse Ox 09/23/18 03:40 97.7 F 57 L 18 152/73 H 94 L Weight Weight 189 lb 2 oz I&O: 09/22/18 09/23/18 09/24/18 06:59 06:59 06:59 Intake Total 120 300 Balance 120 300 Result Diagrams: 09/21/18 04:50 09/23/18 05:03 Additional Labs: Accuchecks 09/23/18 09/23/18 09/22/18 06:43 05:49 21:21 POC Glucose 127 H 54 L* 122 H 09/22/18 09/22/18 17:01 11:01 POC Glucose 129 H 117 H EKG Reviewed by me: Yes (NSVT noted) Phys Exam - Physical Examination Constitutional: NAD HEENT: PERRLA, moist MMs, sclera anicteric Neck: no JVD, supple Respiratory: no wheezing, no rales, no rhonchi Cardiovascular: RRR, no rub SM Gastrointestinal: soft, non-tender, no distention, positive bowel sounds Musculoskeletal: no edema, pulses present Neurological: non-focal, normal sensation Lymphatic: no nodes Psychiatric: normal affect Skin: no rash, normal turgor Dx/Plan (1) Acute bronchitis Code(s): J20.9 - ACUTE BRONCHITIS, UNSPECIFIED Status: Resolved (2) Acute encephalopathy Code(s): G93.40 - ENCEPHALOPATHY, UNSPECIFIED Status: Resolved Comment: due to metabolic etiology (3) Demand ischemia Code(s): I24.8 - OTHER FORMS OF ACUTE ISCHEMIC HEART DISEASE Status: Acute (4) Chronic anticoagulation Code(s): Z79.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 Status: Chronic (5) Diabetes type 2, controlled Code(s): E11.9 - TYPE 2 DIABETES MELLITUS WITHOUT COMPLICATIONS Status: Chronic (6) Dyslipidemia Code(s): E78.5 - HYPERLIPIDEMIA, UNSPECIFIED Status: Chronic (7) ESRD (end stage renal disease) on dialysis Code(s): N18.6 - END STAGE RENAL DISEASE; Z99.2 - DEPENDENCE ON RENAL DIALYSIS Status: Chronic (8) H/O prosthetic aortic valve replacement Code(s): Z95.2 - PRESENCE OF PROSTHETIC HEART VALVE Status: Chronic (9) Hypertension Code(s): I10 - ESSENTIAL (PRIMARY) HYPERTENSION Status: Chronic (10) Secondary hyperparathyroidism of renal origin Code(s): N25.81 - SECONDARY HYPERPARATHYROIDISM OF RENAL ORIGIN Status: Chronic (11) Acute on chronic systolic ACC/AHA stage C congestive heart failure Code(s): I50.23 - ACUTE ON CHRONIC SYSTOLIC (CONGESTIVE) HEART FAILURE Status : Acute (12) Pulmonary hypertension Code(s): I27.20 - PULMONARY HYPERTENSION, UNSPECIFIED Status: Chronic (13) NSVT (nonsustained ventricular tachycardia) Code(s): I47.2 - VENTRICULAR TACHYCARDIA Status: Acute - Plan cont current plan of care, 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 Review of Systems - Review of Systems Respiratory: negative: Cough, Dry, Shortness of Breath, Hemoptysis, SOB with Excertion, Pleuritic Pain, Sputum, Wheezing Cardiovascular: negative: chest pain, palpitations, orthopnea, paroxysmal nocturnal dyspnea, edema, light headedness, other Gastrointestinal: negative: Nausea, Vomiting, Abdominal Pain, Diarrhea, Constipation, Melena, Hematochezia, Other Genitourinary: negative: Dysuria, Frequency, Incontinence, Hematuria, Retention , Other Musculoskeletal: negative: Neck Pain, Shoulder Pain, Arm Pain, Back Pain, Hand Pain, Leg Pain, Foot Pain, Other - Medications/Allergies Allergies/Adverse Reactions: Allergies Allergy/AdvReac Type Severity Reaction Status Date / Time No Known Allergies Allergy Verified 09/16/18 22:40 Medications: Current Medications Amiodarone HCl (Cordarone) 200 mg PO BID [facility] Artificial Tears (Tears Naturale) 2 drop EA EYE PRN PRN PRN Reason: Dry Eyes Aspirin (Ecotrin) 81 mg PO DAILY [facility] Last Admin: 09/22/18 10:02 Dose: 81 mg Atorvastatin Calcium (Lipitor) 40 mg PO QAM [facility] Last Admin: 09/22/18 10:02 Dose: 40 mg Benzonatate (Tessalon) 200 mg PO Q6H PRN PRN Reason: Cough Last Admin: 09/18/18 22:18 Dose: 200 mg Bisacodyl (Dulcolax) 10 mg [place] DAILYPRN PRN PRN Reason: Constipation Calcium Acetate (Phoslo) 1,334 mg PO AC [facility] Last Admin: 09/23/18 10:06 Dose: Not Given Dextrose/Water (Dextrose 50%) 25 gm SLOW IVP PRN PRN PRN Reason: Hypoglycemia Glucagon (Glucagon) 1 mg IM PRN PRN PRN Reason: Hypoglycemia Guaifenesin (Robitussin Sf) 200 mg PO Q4H PRN PRN Reason: Cough Last Admin: 09/18/18 05:58 Dose: 200 mg Hydralazine HCl (Apresoline) 10 mg SLOW IVP Q4H PRN PRN Reason: SBP > 180 and HR < 70 Dextrose/Water (D5w) 1,000 mls @ 0 mls/hr IV .Q0M PRN PRN Reason: Hypoglycemia Insulin Glargine 10 units/ (Miscellaneous Medication) 0.1 mls @ 0 mls/hr SC [facility] Last Admin: 09/22/18 09:59 Dose: 0.1 mls Insulin Human Lispro (Humalog) 0 units SC .MILD SLIDING SCALE PRN PRN Reason: Mild Correctional Scale Insulin Human Lispro (Humalog) 0 units SC .BEDTIME SLIDING SC PRN PRN Reason: Bedtime Correctional Scale Last Admin: 09/17/18 00:01 Dose: 4 unit Loratadine (Claritin) 10 mg PO DAILYPRN PRN PRN Reason: Sinus Symptoms Mineral Oil/White Petrolatum (Eucerin Cream) 0 gm TOP BIDPRN PRN PRN Reason: Dry Skin Miscellaneous Medication (Pharmacy To Dose) 1 each PO ASDIR [facility] Montelukast Sodium (Singulair) 10 mg PO DAILY [facility] Last Admin: 09/22/18 10:03 Dose: 10 mg Ondansetron HCl (Zofran Odt) 4 mg PO Q6H PRN PRN Reason: Nausea/Vomiting Ondansetron HCl (Zofran) 4 mg IVP Q6H PRN PRN Reason: Nausea/Vomiting Saccharomyces Boulardii (Florastor) 250 mg PO DAILY [facility] Last Admin: 09/22/18 10:03 Dose: 250 mg Sacubitril/Valsartan (Entresto 49 Mg-51 Mg Tablet) 1 tab PO BID [facility] Last Admin: 09/22/18 21:04 Dose: Not Given Senna/Docusate Sodium (Senokot S) 2 tab PO BID PRN PRN Reason: Constipation Sodium Chloride ([place] Nasal [place] 0.65%) 0 ml EA NARE QIDPRN PRN PRN Reason: Nasal Congestion Sodium Chloride (Flush - Normal Saline) 10 ml IVF Q12HR [facility] Last Admin: 09/23/18 10:07 Dose: Not Given Sodium Chloride (Flush - Normal Saline) 10 ml IVF PRN PRN PRN Reason: Saline Flush Last Admin: 09/19/18 05:25 Dose: 10 ml Throat Lozenges (Cepastat Lozenges) 1 keena PO Q2H PRN PRN Reason: Sore Throat
[2018-09-23 13:07] VITALS: BP 139/56; TEMP 97.5
[2018-09-23] MEDS: Montelukast Sodium 10 mg Tablet PO SCH (13:09)
[2018-09-23] MEDS: Atorvastatin Calcium 40 MG TAB PO SCH (13:09)
[2018-09-23] MEDS: Sacubitril 49 MG/Valsartan 51 MG TABLET PO SCH (13:09)
[2018-09-23] MEDS: Aspirin 81 mg Enteric Coated Tablet PO SCH (13:09)
[2018-09-23] MEDS: Saccharomyces boulardii 250 MG CAP PO SCH (13:09)
--- NOTE | 2018-09-24 07:53 | DIS ---
DATE OF ADMISSION: 09/17/2018 DATE OF DISCHARGE: 09/23/2018 PRIMARY CARE PHYSICIAN: Genia Call Admission. DISCHARGE DISPOSITION: [facility]. PRIMARY DISCHARGE DIAGNOSES: 1. Acute bronchitis, improved. 2. Acute on chronic systolic congestive heart failure, ACC stage C. 3. Demand ischemia of myocardium. 4. Non-nonsustained ventricular tachycardia. 5. Acute metabolic encephalopathy, resolved. SECONDARY DISCHARGE DIAGNOSES: 1. Secondary hyperparathyroidism of renal origin. 2. Pulmonary hypertension. 3. Hypertension. 4. History of prosthetic aortic valve replacement. 5. End-stage renal disease, on dialysis. 6. Dyslipidemia. 7. Diabetes type 2. 8. Chronic anticoagulation. 9. Chronic systolic ACC stage C heart failure. PRIMARY PROCEDURE/OPERATION: Maintenance hemodialysis. RADIOLOGICAL INVESTIGATION: Chest x-ray showed pulmonary vascular congestion. Echocardiography showed EF 15% to 24%, pulmonary hypertension. Transesophageal echocardiography showed normal functioning prosthetic valve. SIGNIFICANT LABORATORY DATA: WBC 9.3, hemoglobin 13.3, platelet 139. INR 3.9. Sodium 135, creatinine 6.04, calcium 9.8. Blood culture negative. DISCHARGE MEDICATION: 1. Calcium acetate 667 mg 2 tablets a.c. 2. Glipizide 5 mg p.o. b.i.d. 3. Lantus 10 units subcu morning. 4. Singulair 10 mg daily. 5. Warfarin 6 mg daily as directed. 6. Amiodarone 200 mg p.o. b.i.d. 7. Aspirin 81 mg daily. 8. Lipitor 40 mg p.o. daily. 9. Entresto 1 tablet twice daily. CONTRAINDICATION: The patient is not on beta-trey because the patient is recently started with amiodarone and that beta trey can be started as an outpatient basis. Immediately, Cardiology recommended not to give beta trey. The patient is already on Entresto instead of LOLA inhibitor and ARB. CODE STATUS: Full code. INPATIENT HOME VISITOR: Dr. Calloway was following while in hospital. TEST RESULTS PENDING ON DISCHARGE: None. ALLERGIES: NO KNOWN DRUG ALLERGIES. DISCHARGE PLAN: Posthospital, the patient will follow up with primary care physician and Cardiology as instructed. HOSPITAL COURSE: An 82-year-old male who was admitted by Dr. Torres. Please see his H and P for further detail. He was having acute bronchitis on admission as well as encephalopathy from metabolic etiology. At the same time, his clinical presentation was also consistent with congestive heart failure exacerbation. He required maintenance hemodialysis. Echocardiography showed low EF. Cardiology was consulted. Cardiology did a transesophageal echocardiography, which showed normal functioning prosthetic valve. The patient was on LOLA inhibitor and he was having cough, that is why Cardiology recommended to discontinue lisinopril and started Entresto after 48 hours. While in hospital, his monitor was showing a nonsustained ventricular tachycardia and that is why Cardiology started amiodarone and Coreg was temporally discontinued. The patient is doing very well. He has physical deconditioning and that is why family member wanted to send him to intermediate home and that is why with help of case liner, we arranged intermediate home. Paperwork for discharge done. Discharge medication reconciliation done. The patient was seen and examined on the day of discharge. Please see my progress note from that day. Job ID: [id number]
== END 2018-09-23 15:56 | DRG 202 ==
LOC: ERS 18:17 → 2SW 20:56 → OBSVTOIN 09-17 02:18 → 2NO 09-17 17:46
PROVIDERS: ADMIT Hospitalist; ATTEND Hospitalist
PROC: B246ZZ4 Ultrasonography of Right and Left Heart, Transesophageal (ICD-10-PCS; principal; 2018-09-18)
PROC: 5A1D70Z Performance of Urinary Filtration, Intermittent, Less than 6 Hours Per Day (ICD-10-PCS; 2018-09-18)
PROC: 5A1D70Z Performance of Urinary Filtration, Intermittent, Less than 6 Hours Per Day (ICD-10-PCS; 2018-09-21)
DX: J20.9 Acute bronchitis, unspecified (principal); N18.6 End stage renal disease; G93.41 Metabolic encephalopathy; I50.23 Acute on chronic systolic (congestive) heart failure; I13.2 Hypertensive heart and chronic kidney disease with heart failure and with stage 5 chronic kidney disease, or end stage renal disease; I24.8 Other forms of acute ischemic heart disease; I47.2 Ventricular tachycardia; N25.81 Secondary hyperparathyroidism of renal origin; E78.5 Hyperlipidemia, unspecified; E11.22 Type 2 diabetes mellitus with diabetic chronic kidney disease; Z99.2 Dependence on renal dialysis; I27.20 Pulmonary hypertension, unspecified; I25.10 Atherosclerotic heart disease of native coronary artery without angina pectoris; I25.5 Ischemic cardiomyopathy; Z79.01 Long term (current) use of anticoagulants; Z79.4 Long term (current) use of insulin; Z87.891 Personal history of nicotine dependence; Z95.1 Presence of aortocoronary bypass graft; Z95.5 Presence of coronary angioplasty implant and graft; Z90.49 Acquired absence of other specified parts of digestive tract; Z95.2 Presence of prosthetic heart valve
CPT/HCPCS: 36415; 36416; 71045; 80048; 80053; 82553; 83605; 83735; 84484; 85025; 85610; 85730; 87040; 87340; 90471; 90670; 90935; 93005; 93306; 93312; 93798; 94640; 96365; G0009; G0257; J1644; J1825; J2543; J2704; J7050; J7620